=== PATIENT | female | born 1990 | race Caucasian/White ===

== ENCOUNTER 2020-12-26 15:00 | Outpatient (RCR) | payer OTHER, SELFPAY ==
[2020-10-22 12:38] VITALS: BMI 56.9
[2020-10-22 12:47] VITALS: BMI 56.9
== END 2021-01-07 08:09 | disposition home or self-care (01) ==
LOC: ANHDMC 15:00
PROVIDERS: PCP Family Medicine
DX: E66.01 Morbid (severe) obesity due to excess calories (principal); Z71.3 Dietary counseling and surveillance
CPT/HCPCS: 97802

== ENCOUNTER 2021-02-02 16:50 | Emergency (ER) | payer OTHER, SELFPAY ==
--- NOTE | ~2021-02-02 | XR_ITS ---
XR chest 1V portable 02/02/2021 18:54 Indication: Cough and congestion. Chills. Procedure: AP portable chest Comparison: 04/24/2019 Findings: Ill-defined patchy infiltrates of the mid and lower lung zones. Heart size normal. No pleur al effusion or pneumothorax. Impression: 1: Patchy bilateral infiltrates of the mid and lower lung zones, suspicious for pneumonia. Reviewed, dictated and finalized at location A. Impression: 1: Patchy bilateral infiltrates of the mid and lower lung zones, suspicious for pneumonia.
[2021-02-02 17:01] VITALS: BP 176/86; PULSE 108; RESP 18; TEMP 36.6; O2SAT 97
--- NOTE | 2021-02-02 18:42 | ED.URI ---
HPI - URI/Sore Throat General Chief Complaint: Upper Respiratory Infection Stated Complaint: cold s/s Time Seen by Provider: 02/02/21 18:41 Source: patient Mode of arrival: ambulatory Limitations: no limitations History of Present Illness HPI Narrative: Patient is a 30-year-old female complaining of cough, productive, white-yellowish sputum, nasal congestion, body aches, headache, chills, hot and cold flashes, that started 2 days ago. Patient denies any neck pain or stiffness, chest pain, shortness of breath abdominal pain, nausea, vomiting, diarrhea or rash. Related Data Allergies Allergy/AdvReac Type Severity Reaction Status Date / Time No Known Allergies Allergy Unverified 05/03/19 00:48 Review of Systems Review of Systems: All systems reviewed & are unremarkable except as noted in HPI and below PMFSH Social History Social History Smoking status: Never smoker Gender identity (if verbalized by the patient): Female Spiritual care concerns: No Comments Past medical history: None Family history: Noncontributory Social history: Non-smoker no EtOH or drug use Exam Const: General: cooperative, healthy appearing, comfortable, no acute distress, well developed, alert and awake; No confusion Orientation/consciousness: oriented to person, oriented to place, oriented to time, patient oriented x3 and No confusion Limitations: no limitations HENMT: Head: normal to inspection, normocephalic and atraumatic Ears: hearing grossly normal bilaterally, TM normal on the right and TM normal on the left General nose exam: Normal external nose present, Normal nares present and No nasal discharge present Face and sinus: normal facial exam Mouth: Yes Normal oral and palatal mucosa present, Yes lip normal, Yes tongue normal and Yes oropharynx normal Throat: posterior oropharynx normal, tonsils normal and uvula midline Eyes: General: appearance normal, both eyes and all related structures Pupils: Equal, round and reactive pupils present EOM: EOMs intact bilaterally Neck: Neck: normal visual inspection, full ROM, no lymphadenopathy and no meningeal signs Chest: Chest palpation & inspection: normal inspection of the chest Resp: Effort & Inspection: normal respiratory effort, able to speak in complete sentences, no respiratory distress and not tachypneic Auscultation: clear to auscultation bilaterally, no crackles, no rales, no rhonchi and no wheezes Cardio: Rate: regular rate Rhythm: regular rhythm GI: Inspection: normal to inspection GI Palp: No abdominal tenderness, Yes Soft to palpation, No Tenderness to palpation present (GI), No Guarding due to palpation present (GI), No Rigid due to palpation and No Rebound tenderness present Auscultation: normal bowel sounds : General: Yes no CVA tenderness Back/Spine/Pelvis: Back: no CVA tenderness Skin: General skin exam: normal color, no rashes or lesions noted, elasticity normal and turgor normal Neuro: General: oriented to person, oriented to place, oriented to time, patient oriented x3, tone normal, moves all extremities, Normal light touch and pain sensation, no meningeal signs, no focal motor deficits, CN's II-XI intact bilaterally and No confusion Cranial nerves: Yes Equal, round and reactive pupils present Speech: No Abnormal speech present Sensory Exam: No Sensory deficit (Neuro) Extrem: General: normal to inspection, full ROM and capillary refill normal Psych: Appearance: grossly normal and well kempt Mental Status: mental status grossly normal Speech and movement: Normal speech and movement present Affect: normal affect Attitude: cooperative Thought process: Normal thought process present Thought content: Yes Normal thought content present Insight: Good insight present (Psych) Judgement: Good judgement present (Psych) Course Vital Signs Vital signs: Vital Signs Temperature 36.6 C 02/02/21 17:01 Pulse Rate 108 H 02/02/21 17:01 Respiratory Rate 18 05/
[2021-02-02 18:46] VITALS: O2SAT 99
[2021-02-02 19:39] VITALS: BP 106/69; BP 163/109; PULSE 94; PULSE 96; RESP 18; O2SAT 97; O2SAT 98
[2021-02-02 19:43] LABS: Glucose Point of Care 96 mg/dl (65-105)
[2021-02-02 20:22] LABS: Add Urine Microscopic? YES; Appearance Urine Cloudy (Clear); Bacteria Urine Trace /hpf; Bilirubin Urine Negative (Negative); Blood Urine 3+ (Negative); Color Urine Yellow (Yellow); Glucose Urine UA Negative (Negative); Ketones Urine Negative (Negative); Leukocyte Esterase Ur 2+ LEU/UL (Negative); Nitrate Urine Negative (Negative); Protein Urine 1+ mg/dL (Negative); Specific Grav Ur 1.011 (1.001-1.035); Squamous Epithelial Cell Urine Many /hpf (Few); Urobilinogen Urine Negative mg/dL (<2.0); WBC Urine 16-20 /hpf
[2021-02-02] MEDS: DOXYCYCLINE HYCLATE 100 MG TABLET PO (20:52)
== END 2021-02-02 20:30 | disposition home or self-care (01) ==
PROVIDERS: Emergency Provider Emergency Medicine
DX: J06.9 Acute upper respiratory infection, unspecified (principal)
CPT/HCPCS: 71045; 81001; 81025; 82948; 87086; 87088; 87147; 99283; A9270

== ENCOUNTER 2022-02-02 00:42 | Emergency (ER) | payer OTHER, SELFPAY ==
--- NOTE | ~2022-02-02 | XR_ITS ---
XR chest 1V portable INDICATION: Chest tightness and sore throat TECHNIQUE: 2 view chest. FINDINGS: Comparison to multiple prior studies sequentially, with oldest reviewed study dated 2017. There is mild bilateral interstitial prominence and peribronchial cuffing. There is no focal consoli dation, pleural effusion, or pneumothorax. The cardiomediastinal silhouette is normal. IMPRESSION: 1. Findings most consistent with bronchiolitis versus an atypical or viral pneumonia. Reviewed, dictated and finalized at location A. IMPRESSION: 1. Findings most consistent with bronchiolitis versus an atypical or viral pne [facility].
[2022-02-02 00:42] VITALS: BP 157/109; PULSE 104; RESP 19; TEMP 37; O2SAT 98
--- NOTE | 2022-02-02 01:47 | ED.SOB ---
HPI - SOB/Dyspnea General Chief Complaint: Shortness of Breath/Dyspnea Stated Complaint: SICK Time Seen by Provider: 02/02/22 00:46 Source: patient and RN notes reviewed Mode of arrival: ambulatory Limitations: no limitations History of Present Illness MD elicited complaint: shortness of breath and cough (and sore throat) Onset (ago): day(s) (3) Timing: constant Severity: mild Exacerbating factors: coughing Relieving factors: bronchodilators and medication Known history of: asthma Associated symptoms: cough and chest congestion Treatment prior to arrival: bronchodilator Related Data Home Medications Medication Instructions Recorded Confirmed albuterol sulfate 90 mcg/actuation See Rx Instructions .Route 02/02/22 02/02/22 aerosol inhaler .COMPLEX PRN Shortness Of Breath blood sugar diagnostic (OneTouch 02/02/22 02/02/22 Verio test strips) fluoxetine 20 mg capsule 20 cap PO DAILY 02/02/22 02/02/22 fluoxetine 40 mg capsule 40 cap PO DAILY 02/02/22 02/02/22 fluticasone propionate 110 See Rx Instructions .Route .COMPLEX 02/02/22 02/02/22 mcg/actuation HFA aerosol inhaler (Flovent HFA) lamotrigine 25 mg tablet 2 tablet PO DAILY 02/02/22 02/02/22 lisinopril 10 mg tablet 1 tablet PO DAILY 02/02/22 02/02/22 prazosin 1 mg capsule 1 cap PO HS 02/02/22 02/02/22 rosuvastatin 10 mg tablet 1 tablet PO DAILY 02/02/22 02/02/22 sitagliptin 25 mg tablet (Januvia) 1 tablet PO DAILY 02/02/22 02/02/22 Allergies Allergy/AdvReac Type Severity Reaction Status Date / Time No Known Allergies Allergy Verified 02/02/22 00:52 Review of Systems Review of Systems: All systems reviewed & are unremarkable except as noted in HPI and below PMFSH Past Medical History Medical History (Updated 02/02/22 @ 02:24 by Hamilton Chi MD) Bronchitis Pharyngitis Viral syndrome Social History Social History Smoking status: Never smoker Gender identity (if verbalized by the patient): Female Spiritual care concerns: No Exam Const: General: no acute distress Nutritional Appearance: obese Orientation/consciousness: patient oriented x3 Limitations: no limitations HENMT: Ears: external ears normal, TM's normal bilaterally and EAC's normal General nose exam: Normal external nose present and Normal nares present Face and sinus: normal facial exam and sinuses nontender Mouth: Yes Normal oral and palatal mucosa present and Yes moist mucous membranes Teeth and gingiva: dentition normal Other: hyperemic pharynx, Eyes: Conjunctivae: conjunctivae normal Pupils: Equal, round and reactive pupils present EOM: EOMs intact bilaterally Neck: Neck: normal visual inspection and no lymphadenopathy Chest: Chest palpation & inspection: normal inspection of the chest Resp: Effort & Inspection: normal respiratory effort Auscultation: rhonchi (mild occasional) Cardio: Rate: regular rate Rhythm: regular rhythm GI: GI Palp: Yes Soft to palpation and No Tenderness to palpation present (GI) Auscultation: normal bowel sounds : General: Yes bladder normal to palpation and Yes no CVA tenderness Skin: General skin exam: normal color Rashes: no rashes Wounds: no wounds Neuro: General: patient oriented x3, moves all extremities, no meningeal signs, no focal motor deficits and CN's II-XI intact bilaterally Extrem: General: normal to inspection and no pedal edema Psych: Mental Status: mental status grossly normal Affect: normal affect Attitude: cooperative Course Course Emergency Course: Pt was stable in the ED, no acute SOB. Reevaluation(s) Reevaluation #1: VS to be treated. Date: 02/02/22 Time: 01:05 Vital Signs Vital signs: Vital Signs Temperature 37.0 C 02/02/22 00:42 Pulse Rate 104 H 02/02/22 00:42 Respiratory Rate 19 02/02/22 00:42 Blood Pressure 157/109 H 02/02/22 00:42 Pulse Oximetry 98 02/02/22 00:42 Oxygen Delivery Room Air 02/02/22 00:42 Temperature 37.0 C 02/02/22 00:42 Pulse Rat
[2022-02-02 01:56] VITALS: BP 146/103; PULSE 98; RESP 17; O2SAT 98
--- NOTE | 2022-02-02 02:12 | PC.NURSE ---
pt informed cath laboratory technician that she is refusing the ABG lab draw. Md Chi informed.
[2022-02-02 02:18] LABS: Basophils Absolute Auto 0.05 K/mm3 (0.00-0.10); Basophils Percent Auto 0.5 % (0.0-1.0); Eosinophils Absolute Auto 0.17 K/mm3 (0.02-0.50); Eosinophils Percent Auto 1.6 % (1.0-6.0); Hematocrit 43.5 % (35.0-49.0); Hemoglobin 13.6 g/dL (12.0-15.0); Immature Granulocyte Absolute 0.03 K/mm3 (0.00-0.00); Immature Granulocyte Percent A 0.3 % (0.0-0.0); Lymphocytes Absolute Auto 3.54 K/mm3 (1.10-4.50); Lymphocytes Percent Auto 33.5 % (18.0-42.0); Mean Corpuscular HGB Conc 31.3 g/dL (32.0-36.0); Mean Corpuscular Hemoglobin 24.8 pg (27.0-31.0); Mean Corpuscular Volume 79.2 fL (78.0-102.0); Mean Platelet Volume 10.2 fl (9.2-11.8); Monocytes Absolute Auto 0.56 K/mm3 (0.10-0.90); Monocytes Percent Auto 5.3 % (2.0-11.0); Neutrophils Absolute Auto 6.2 K/mm3 (1.7-7.2); Neutrophils Percent Auto 58.8 % (50.0-70.0); Platelet Count Result 261 K/mm3 (150-420); Red Blood Count 5.49 M/mm3 (4.20-5.40); White Blood Count 10.6 K/mm3 (4.8-10.8)
[2022-02-02 02:32] LABS: Influenza Control Valid (Valid)
[2022-02-02] MEDS: cloNIDine HCL 0.2 MG TABLET PO (02:34)
[2022-02-02 03:08] VITALS: BP 134/92; PULSE 97
[2022-02-02 03:09] VITALS: BP 134/92; PULSE 97; RESP 17; TEMP 36.3; O2SAT 98
== END 2022-02-02 03:10 | disposition home or self-care (01) ==
PROVIDERS: Emergency Provider Emergency Medicine
DX: J40 Bronchitis, not specified as acute or chronic (principal); J06.9 Acute upper respiratory infection, unspecified; B34.9 Viral infection, unspecified
CPT/HCPCS: 71045; 85025; 87081; 87804; 87880; 99283; A9270

== ENCOUNTER 2023-01-06 15:28 | Observation (INO) | payer OTHER, SELFPAY ==
[2023-01-06] VITALS (10 sets, daily range): BP systolic 119–145; BP diastolic 71–79; PULSE 69–82; RESP 13–20; TEMP 36.6; O2SAT 98–100; BMI 47.2
--- NOTE | ~2023-01-06 | CT_ITS ---
EXAMINATION: CTA neck DATE: 01/07/2023 09:09 INDICATION: Neck pain. TECHNIQUE: Computed tomographic angiography (CTA) of the neck was performed with 100 mL Omnipaque-350 intravenous contrast. Automated exposure control and iterative reconstruction technique were employe d. The dose-length product was 652.55 mGy-cm. Maximum intensity projection 3D-reconstructions were cr eated by the technologist on a separate workstation. COMPARISON: None. FINDINGS: There are no pathologically enlarged lymph nodes. There is no significant stenosis of the v ertebral arteries. There is no visible plaque in the proximal internal carotid arteries. There is 0% stenosis of the proximal right internal carotid artery relative to normal distal artery lumen diamete r (NASCET criteria). There is 0% stenosis of the proximal left internal carotid artery relative to no rmal distal artery lumen diameter. There is mild cervical spondylosis. IMPRESSION: 1. 0% stenosis of the proximal internal carotid arteries relative to normal distal artery lumen diame ters (NASCET criteria). Reviewed, dictated and finalized at location A. IMPRESSION: 1. 0% stenosis of the proximal internal carotid arteries relative to normal dis tony artery lumen diameters (NASCET criteria).
--- NOTE | ~2023-01-06 | CT_ITS ---
EXAMINATION: CT brain wo con DATE: 01/06/2023 16:31 INDICATION: blurry vision . TECHNIQUE: Computed tomography (CT) of the head was performed without intravenous contrast. The mA wa s adjusted according to patient size. Iterative reconstruction technique was employed. The dose-lengt h product was 605.33 mGy-cm. COMPARISON: None. FINDINGS: No acute intracranial hemorrhage or extra-axial fluid collection. No hydrocephalus, mass, or herniation. No acute ischemic infarct. Unremarkable dural venous sinus attenuation. No acute osseous abnormality. The aerated spaces are clear. IMPRESSION: No acute intracranial process. Reviewed, dictated and finalized at location K.
--- NOTE | ~2023-01-06 | MR_ITS ---
EXAMINATION: MR brain/brain stem wo/w con DATE: 01/07/2023 08:51 INDICATION: Intracranial hypertension. Blurred vision. TECHNIQUE: Magnetic resonance imaging (MRI) of the brain and brainstem was performed without and with 20 mL MultiHance intravenous contrast. COMPARISON: Head CT 01/06/2023 FINDINGS: There is no intracranial hemorrhage, acute infarction, or abnormal intracranial mass lesion . The ventricles are normal in size. The paranasal sinuses are clear. The orbits are normal. The mast oid air cells are normal. IMPRESSION: 1. Normal brain. Reviewed, dictated and finalized at location A. IMPRESSION: 1. Normal brain.
[2023-01-06] MEDS: FAMOTIDINE 20 MG TABLET PO (16:49)
[2023-01-06] MEDS: ONDANSETRON HCL ODT 4 MG TABLET PO (16:49)
--- NOTE | 2023-01-06 18:11 | ED.GENADULT ---
HPI - General Adult General Chief complaint: Unspecified Stated complaint: tongue numbness Time Seen by Provider: 01/06/23 15:58 History of Present Illness HPI narrative: Patient states that since last night, she has noticed some numbness to the tip of her tongue, and blurry vision to bilateral eyes that comes and goes. She also describes heartburn. She has been diagnosed in the past with idiopathic intracranial hypertension, and have been told that had resolved. She is concerned that this may be happening again. Endorses a very mild headache. Related Data Home Medications Medication Instructions Recorded Confirmed albuterol sulfate 90 mcg/actuation See Rx Instructions .Route 02/02/22 02/02/22 aerosol inhaler .COMPLEX PRN Shortness Of Breath blood sugar diagnostic (OneTouch 02/02/22 02/02/22 Verio test strips) fluoxetine 20 mg capsule 20 cap PO DAILY 02/02/22 02/02/22 fluoxetine 40 mg capsule 40 cap PO DAILY 02/02/22 02/02/22 fluticasone propionate 110 See Rx Instructions .Route .COMPLEX 02/02/22 02/02/22 mcg/actuation HFA aerosol inhaler (Flovent HFA) lamotrigine 25 mg tablet 2 tablet PO DAILY 02/02/22 02/02/22 lisinopril 10 mg tablet 1 tablet PO DAILY 02/02/22 02/02/22 prazosin 1 mg capsule 1 cap PO HS 02/02/22 02/02/22 rosuvastatin 10 mg tablet 1 tablet PO DAILY 02/02/22 02/02/22 sitagliptin phosphate 25 mg tablet 1 tablet PO DAILY 02/02/22 02/02/22 (Januvia) Allergies Allergy/AdvReac Type Severity Reaction Status Date / Time No Known Allergies Allergy Verified 01/06/23 15:39 Review of Systems Review of Systems: CONST: No fever. HEENT: Blurry vision comes/goes C/V: No chest pain RESP: No cough GI: Mild epigastric discomfort and nausea : No dysuria. M/S: No joint pain. SKIN: No rash. NEURO: Tingling to tongue PSYCH: Anxiety PMFSH Past Medical History Medical History Bronchitis Pharyngitis Viral syndrome Social History Social History Smoking status: Never smoker Gender identity (if verbalized by the patient): Female Spiritual care concerns: No Exam Narrative: EXAMINATION OF ORGAN SYSTEMS/BODY AREAS: Constitutional: Vital signs per nursing GENERAL:[No acute distress, non-toxic appearing.] HEAD: Normal with no signs of head trauma. EYES: EOMI, conjunctiva normal, PERRL ENT: Hearing grossly intact LUNGS: Nonlabored breathing. HEART: [Regular rate and rhythm] ABD: [Soft], [nontender to palpation] EXT: Normal range of motion SKIN: [No rashes or lesions.] NEURO: [Alert and oriented x 3. No gross focal sensory or strength deficits.] NIHSS 0 PSYCH: Normal affect Course Vital Signs Vital signs: Vital Signs Temperature 97.8 F 01/06/23 15:30 Pulse Rate 79 01/06/23 15:30 Respiratory Rate 19 01/06/23 15:30 Blood Pressure 131/79 01/06/23 15:30 Pulse Oximetry 100 01/06/23 15:30 Oxygen Delivery Room Air 01/06/23 15:30 Temperature 97.8 F 01/06/23 15:30 Pulse Rate 82 01/06/23 17:01 Respiratory Rate 13 01/06/23 16:51 Blood Pressure 119/71 01/06/23 16:16 Pulse Oximetry 99 01/06/23 17:01 Oxygen Delivery Room Air 01/06/23 15:30 Medical Decision Making [facility] Narrative Medical decision making narrative: 32-year-old female presenting with multiple vague complaints including tingling of her tongue and intermittent blurry vision, and heartburn. Vital signs stable, NIH stroke scale is 0, she is well-appearing here, I did discuss this with her neurologist given her prior history of IIH and he recommended CT head now and admission for MRI and possible further work-up including lumbar puncture. Patient agreeable with this plan, case discussed with hospitalist for admission. Vital Signs Vital Signs: Vital Signs Temperature 97.8 F 01/06/23 15:30 Pulse Rate 79 01/06/23 15:30 Respiratory Rate 19 01/06/23 15:30 Blood Pre
[2023-01-06 21:33] LABS: Glucose Point of Care 106 mg/dl (65-105)
--- NOTE | 2023-01-06 21:41 | PM.IMHP ---
H&P: HPI History of Present Illness Date/Time: 01/06/23 21:41 Chief Complaint: Tongue numbness Narrative: The patient has a history of asthma, depression with personality disorder, hypertension, obesity, diabetes and hyperlipidemia. The patient stated since last night she does notice some numbness to the tip of her tongue. She also had complaints of blurred vision on and off and mild vision. She stated this comes and goes. She also has some complaints of heartburn. The patient had been diagnosed in the past with idiopathic intracranial hypertension and had a spinal tap in the past and this has been resolved. Patient was concerned that this may be happening again. Patient also complains of a mild headache. He stated that he either Toradol or dilaudid would help her with her discomfort. She was given Toradol. The patient is 132.9 kg and lumbar puncture was deferred ED provider. The patient was given Zofran, Pepcid and the Toradol.. Her NIH score was 0. The case was discussed with the neurologist given her prior history iih it was recommended that the patient stay overnight and receive an MRI and a possible lumbar puncture tomorrow. Her blood sugar was noted to be 106. Head CT was read as no acute intracranial process. The patient is being admitted to observation status on the date of service of 01/06/2023. Review of Systems Review of Systems: All systems reviewed & are unremarkable except as noted in HPI and below Constitutional: Constitutional: Reports as per HPI and Reports no additional constitutional complaints Eyes: Eyes: Reports as per HPI and Reports no additional eye complaints ENT: Reports system reviewed and no additional complaints, except as documented and Reports Normal hearing present Cardiovascular: Cardiovascular: Reports no additional cardiovascular complaints Respiratory: Respiratory: Reports no additional respiratory complaints and Reports no additional respiratory complaints Gastrointestinal: Gastrointestinal: Reports as per HPI and Reports no additional gastrointestinal complaints Musculoskeletal: Musculoskeletal: Reports no additional musculoskeletal complaints Integumentary/Breasts: Skin/Breast: Reports system reviewed and no additional complaints, except as docu and Reports as per HPI Neurologic: Reports system reviewed and no additional complaints, except as documented, Reports as per HPI and Reports Normal hearing present Psychiatric: Psychiatric: Reports no additional psychiatric complaints and Reports as per HPI Endocrine: Endocrine: Reports no additional endocrine complaints Hematologic/Lymphatic: Hematologic/Lymphatic: Reports no additional hematologic/lymphatic complaints Allergic/Immunologic: Allergic/Immunologic: Reports no additional allergic/immunologic complaints PMFSH Past Medical History Medical History (Updated 01/07/23 @ 01:23 by Mary Ann Katz NP) Asthma Bipolar disorder Borderline personality disorder Bronchitis Diabetes Hyperlipidemia Hypertension Pharyngitis PTSD (post-traumatic stress disorder) Viral syndrome Surgical History Surgical History (Updated 01/07/23 @ 01:23 by Mary Ann Katz NP) H/O section X1 Family History Family History Mother Seizure Social History Social History (Updated 01/07/23 @ 01:24 by Mary Ann Katz NP) Social History: She lives with her fiance, daughter and her fiancee's parents. She works for place called [employer]. She just recently started there. She is a lifelong nonsmoker. She denies any alcohol marijuana or illicit drugs. Code status full code Smoking status: Never smoker Alcohol intake: never Substance use: current Substance use type: marijuana Other substance usage details: 3x per year for anxiety Lack of Transportation: No Lack of Food: Never True Current Housing: I Have Housing Concerned About Future Housing: No Difficul
[2023-01-06] MEDS: KETOROLAC 30 MG/ML VIAL (*BKC) IV PUSH (22:09)
--- NOTE | 2023-01-07 | ECHO_ITS ---
Patient Info Name: Jil Kidd Age: 32 years : 1990 Gender: Female Ht: 66 in Wt: 292 lbs BSA: 2.56 m2 HR: 74 bpm BP: 108 / 62 mmHg Heart Rhythm: Sinus Rhythm Technical Quality: Poor Exam Date: 01/07/2023 11:41 AM Exam Location: [facility] Patient Status: Outpatient Admit Date: 01/06/2023 Staff Ordering Physician: Mary Ann Katz NP Boarding Specialist: Radha Dorado RDCS Attending Provider: Carmen Green MD Referring Physician: Sterling POLK; Exam Type: CA echo dop bubble study w con Study Info Indications - NEURO S/S Contrast/Agitated Saline Contrast/Ag. Saline: Agitated Saline Amount: 30.00 ml Administered By: Madeleine Mckeon RDCS Existing IV Access: Yes Contrast/Ag. Saline: Definity Amount: 3.00 ml Administered By: Madeleine Mckeon RDCS Existing IV Access: Yes Reason for Poor Study: patient body habitus Summary 1. Left ventricular chamber dimension is normal. 2. Left ventricular systolic function is hyperdynamic, estimated at >70%. 3. The left ventricular diastolic function is grade I diastolic dysfunction. 4. Right ventricular systolic function is normal. 5. Left atrial chamber dimension is moderately enlarged. 6. Right atrial chamber dimension is mildly enlarged. 7. Intact interatrial septum visualized by agitated saline imaging. Negative bubble study. 8. There is trivial pericardial effusion. Left Ventricle Left ventricular chamber dimension is normal. Left ventricular systolic function is hyperdynamic, estimated at >70%. There is no increased left ventricular wall thickness. The left ventricular diastolic function is grade I diastolic dysfunction. Right Ventricle Right ventricular chamber dimension is normal. Right ventricular systolic function is normal. Left Atria Left atrial chamber dimension is moderately enlarged. Right Atria Right atrial chamber dimension is mildly enlarged. Atrial Septum Intact interatrial septum visualized by agitated saline imaging. Negative bubble study. Aortic Valve The aortic valve is not well visualized. There is no aortic valve stenosis. There is no aortic valve regurgitation. Pulmonic Valve The pulmonic valve is not well visualized. Mitral Valve There is trace mitral valve regurgitation. Tricuspid Valve There is trace tricuspid valve regurgitation. Pericardium/Pleural There is trivial pericardial effusion. Inferior Vena Cava Inferior vena cava is not well visualized. Aorta The aortic root size at the sinus of Valsalva is normal. Left Ventricular Outflow Tract Name Value Normal LVOT 2D LVOT Diameter 1.9 cm LVOT Doppler LVOT Peak Gradient 8 mmHg LVOT Mean Gradient 5 mmHg LVOT VTI 27 cm LVOT VTI/AV VTI Ratio 1.0 LVOT Stroke Volume 80 ml LVOT CO 6.2 l/min LVOT CI 2.4 l/min/m2 Pulmonic Valve Name
--- NOTE | 2023-01-07 00:22 | PCRCNOTE ---
Pt declining use of hospital cpap/bipap at this time
[2023-01-07 04:44] VITALS: BP 108/62; PULSE 65; RESP 17; TEMP 36.7; O2SAT 99
[2023-01-07] MEDS: PRAZOSIN HCL 1 MG CAPSULE 2 MG PO (05:43)
[2023-01-07 05:56] LABS: Basophils Percent Auto 0.4 % (0.2-1.2); Eosinophils Absolute Auto 0.1 K/mm3 (0-0.3); Eosinophils Percent Auto 1.3 % (0-4.4); Hematocrit 42.6 % (37.0-47.0); Immature Granulocyte Absolute 0.02 K/mm3 (0.00-0.031); Immature Granulocyte Percent A 0.3 % (0-0.5); Lymphocytes Absolute Auto 2.57 K/mm3 (0.9-3.2); Lymphocytes Percent Auto 36.1 % (18.3-44.2); Mean Corpuscular HGB Conc 30.5 g/dl (32-36); Mean Corpuscular Hemoglobin 25.4 pg (26-34); Mean Corpuscular Volume 83.2 fl (80-100); Mean Platelet Volume 10.3 fl (7.4-10.4); Monocytes Absolute Auto 0.4 K/mm3 (0.1-0.6); Monocytes Percent Auto 5.1 % (2.6-8.5); Neutrophils Absolute Auto 4.1 K/mm3 (1.3-6.7); Neutrophils Percent Auto 56.8 % (45.5-73.1); Platelet Count Result 262 k/mm3 (150-375); Red Blood Count 5.12 M/mm3 (4.2-5.4); Red Cell Distribution Width 14.2 % (11.5-14.5); White Blood Count 7.1 K/mm3 (4.5-10.0)
[2023-01-07 06:10] LABS: Alanine Aminotransferase 21 U/L (6-35); Albumin Level 3.9 g/dL (3.5-5.1); Alkaline Phosphatase 81 U/L (38-126); Anion Gap 4 mmol/L (8-16); Aspartate Amino Transferase 18 U/L (14-36); Bilirubin,Total 1.1 mg/dL (0.2-1.3); Blood Urea Nitrogen 8 mg/dL (7-17); Calcium 9.1 mg/dL (8.4-10.2); Carbon Dioxide 31 mmol/L (22-30); Chloride 102 mmol/L (98-107); Estimated CRCL calculation 163 ml/min; Estimated Glomerular Filt Rate > 60; Glucose 101 mg/dL (65-110); Potassium 3.7 mmol/L (3.4-5.0); Sodium 137 mmol/L (137-145)
[2023-01-07 07:17] LABS: Hemoglobin A1C 6.7 % (<5.7)
--- NOTE | 2023-01-07 07:35 | P.PNIM_ITS ---
Progress Note: A&P Assessment and Plan (1) Blurred vision: Code(s): H53.8 - Other visual disturbances Status: Acute Assessment and Plan: * Vision changes noted to be pixalated and fades in an out intermittently * no focal weakness * NIH score 0 * Neurology has been consulted * MRI negative for any acute stroke * Echo bubble * CTA carotid 0% stenosis bilateral carotid arteries * Could also be related to diabetes * Could be related to migraine * Neurology recommending a spinal tap to rule out pseudotumor (2) Diabetes: Qualifiers: Diabetes mellitus complication status: without complication Diabetes mellitus mcfp insulin use: without mcfp use Diabetes mellitus type: type 2 Qualified Code(s): E11.9 - Type 2 diabetes mellitus without complications Code(s): E11.9 - Type 2 diabetes mellitus without complications Status: Acute Assessment and Plan: * Glucose 101 * Accu-Cheks AC and HS * sliding scale insulin * hypoglycemic protocol * A1c 6.7 * Trend glucose and adjust therapy as indicated (3) Asthma: Qualifiers: Asthma complication type: uncomplicated Asthma persistence: intermittent Asthma severity: unspecified severity Qualified Code(s): J45.20 - Mild intermittent asthma, uncomplicated Code(s): J45.909 - Unspecified asthma, uncomplicated Status: Acute Assessment and Plan: * Continue with inhaler albuterol prn * Not in acute exacerbation * Continue to trend respiratory status * Adjust medications as indicated (4) Hypertension: Qualifiers: Hypertension type: primary hypertension Qualified Code(s): I10 - Essential (primary) hypertension Code(s): I10 - Essential (primary) hypertension Status: Acute Assessment and Plan: * Current BP 108/62 * Continue with lisinopril * Trend BP * Adjust therapy as indicated (5) Hyperlipidemia: Qualifiers: Hyperlipidemia type: mixed hyperlipidemia Qualified Code(s): E78.2 - Mixed hyperlipidemia Code(s): E78.5 - Hyperlipidemia, unspecified Status: Acute Assessment and Plan: * Continue with rosuvastatin (6) Borderline personality disorder: Code(s): F60.3 - Borderline personality disorder Status: Acute Assessment and Plan: * Continue with Lamictal and fluoxetine Prazosin * Controlled (7) Pseudotumor cerebri: Code(s): G93.2 - Benign intracranial hypertension Status: Acute Assessment and Plan: * Neurology recommending a spinal tap to rule out pseudotumor cerebri * Neurology consulted (8) Bipolar disorder: Code(s): F31.9 - Bipolar disorder, unspecified Status: Acute Assessment and Plan: * Stable on chronic * Continue home meds (9) Migraines: Code(s): G43.909 - Migraine, unspecified, not intractable, without status migrainosus Status: Acute Assessment and Plan: * Patient alludes to symptoms of migraine including frontal area pain radiating down below her eyes. * Vision is better however she is photophobic and stated the light bothers her * Ordered Reglan, Toradol, Benadryl, bag of fluids * Will reassess later this afternoon Time Spent With Patient Time: 51 minutes Time with patient: Greater than 35 minutes Subjective Date/time s
--- NOTE | 2023-01-07 07:35 | PM.IMPN ---
Progress Note: A&P Assessment and Plan (1) Blurred vision: Code(s): H53.8 - Other visual disturbances Status: Acute Assessment and Plan: Vision changes noted to be pixalated and fades in an out intermittently no focal weakness NIH score 0 Neurology has been consulted MRI negative for any acute stroke Echo bubble CTA carotid 0% stenosis bilateral carotid arteries Could also be related to diabetes Could be related to migraine Neurology recommending a spinal tap to rule out pseudotumor (2) Diabetes: Qualifiers: Diabetes mellitus complication status: without complication Diabetes mellitus buttermaker insulin use: without buttermaker use Diabetes mellitus type: type 2 Qualified Code(s): E11.9 - Type 2 diabetes mellitus without complications Code(s): E11.9 - Type 2 diabetes mellitus without complications Status: Acute Assessment and Plan: Glucose 101 Accu-Cheks AC and HS sliding scale insulin hypoglycemic protocol A1c 6.7 Trend glucose and adjust therapy as indicated (3) Asthma: Qualifiers: Asthma complication type: uncomplicated Asthma persistence: intermittent Asthma severity: unspecified severity Qualified Code(s): J45.20 - Mild intermittent asthma, uncomplicated Code(s): J45.909 - Unspecified asthma, uncomplicated Status: Acute Assessment and Plan: Continue with inhaler albuterol prn Not in acute exacerbation Continue to trend respiratory status Adjust medications as indicated (4) Hypertension: Qualifiers: Hypertension type: primary hypertension Qualified Code(s): I10 - Essential (primary) hypertension Code(s): I10 - Essential (primary) hypertension Status: Acute Assessment and Plan: Current BP 108/62 Continue with lisinopril Trend BP Adjust therapy as indicated (5) Hyperlipidemia: Qualifiers: Hyperlipidemia type: mixed hyperlipidemia Qualified Code(s): E78.2 - Mixed hyperlipidemia Code(s): E78.5 - Hyperlipidemia, unspecified Status: Acute Assessment and Plan: Continue with rosuvastatin (6) Borderline personality disorder: Code(s): F60.3 - Borderline personality disorder Status: Acute Assessment and Plan: Continue with Lamictal and fluoxetine Prazosin Controlled (7) Pseudotumor cerebri: Code(s): G93.2 - Benign intracranial hypertension Status: Acute Assessment and Plan: Neurology recommending a spinal tap to rule out pseudotumor cerebri Neurology consulted (8) Bipolar disorder: Code(s): F31.9 - Bipolar disorder, unspecified Status: Acute Assessment and Plan: Stable on chronic Continue home meds (9) Migraines: Code(s): G43.909 - Migraine, unspecified, not intractable, without status migrainosus Status: Acute Assessment and Plan: Patient alludes to symptoms of migraine including frontal area pain radiating down below her eyes. Vision is better however she is photophobic and stated the light bothers her Ordered Reglan, Toradol, Benadryl, bag of fluids Will reassess later this afternoon Time Spent With Patient Time: 51 minutes Time with patient: Greater than 35 minutes Subjective Date/time seen: 01/07/231114 Interval history: 01/07/231114 Patient stated that she is doing okay right now. Patient stated that she is having some headache. She states her headache is frontal lobe and is a 4/10. She also stated that she feels like her IS spasming and she is very photophobic. Vision is better the blurry and now is is less. She denies any chest pain, shortness a breath, nausea, vomiting, diarrhea constipation. She did state that she has decreased appetite but did eat this morning. 01/06/23? 21:41 The patient has a history of asthma, depression with personality diso
[2023-01-07 08:30] VITALS: BP 142/80; PULSE 83
[2023-01-07 09:13] LABS: Glucose Point of Care 147 mg/dl (65-105)
[2023-01-07] MEDS: ROSUVASTATIN 10 MG TABLET 20 MG PO (09:19)
[2023-01-07 09:20] VITALS: BP 142/80; PULSE 83
[2023-01-07] MEDS: FLUoxetine HCL 20 MG CAPSULE 80 MG PO (09:21)
[2023-01-07] MEDS: lisinopriL 20 MG TABLET PO (09:22)
[2023-01-07] MEDS: lamoTRIgine 50 MG TABLET PO (09:22)
--- NOTE | 2023-01-07 10:59 | PC.NURSE ---
On 01/07/23, the student, [Cynthia Silva], provided care and completed [facility] documentation on this patient. I have reviewed the student's documentation and agree with the findings.
--- NOTE | 2023-01-07 11:15 | P.DS_ITS ---
DS: Admitting Diagnosis Discharge Date 01/07/23 1115 Admitting Diagnosis Migraine DS: Discharge Diagnosis Discharge Diagnosis (1) Blurred vision: Code(s): H53.8 - Other visual disturbances Status: Acute Assessment and Plan: * Vision changes noted to be pixalated and fades in an out intermittently * no focal weakness * NIH score 0 * Neurology has been consulted * MRI negative for any acute stroke * Echo bubble negative for any PFO * CTA carotid 0% stenosis bilateral carotid arteries * Could also be related to diabetes * Could be related to migraine * Neurology recommending a spinal tap to rule out pseudotumor * Spoke with Dr. Awad, who stated that if she is feeling better, she should be able to be discharged (2) Diabetes: Qualifiers: Diabetes mellitus complication status: without complication Diabetes mellitus long term care phlebotomist insulin use: without long term care phlebotomist use Diabetes mellitus type: type 2 Qualified Code(s): E11.9 - Type 2 diabetes mellitus without complications Code(s): E11.9 - Type 2 diabetes mellitus without complications Status: Acute Assessment and Plan: * Glucose 101 * Accu-Cheks AC and HS * sliding scale insulin * hypoglycemic protocol * A1c 6.7 * Trend glucose and adjust therapy as indicated (3) Asthma: Qualifiers: Asthma complication type: uncomplicated Asthma persistence: intermittent Asthma severity: unspecified severity Qualified Code(s): J45.20 - Mild intermittent asthma, uncomplicated Code(s): J45.909 - Unspecified asthma, uncomplicated Status: Acute Assessment and Plan: * Continue with inhaler albuterol prn * Not in acute exacerbation * Continue to trend respiratory status * Adjust medications as indicated (4) Hypertension: Qualifiers: Hypertension type: primary hypertension Qualified Code(s): I10 - Essential (primary) hypertension Code(s): I10 - Essential (primary) hypertension Status: Acute Assessment and Plan: * Current BP 108/62 * Continue with lisinopril * Trend BP * Adjust therapy as indicated (5) Hyperlipidemia: Qualifiers: Hyperlipidemia type: mixed hyperlipidemia Qualified Code(s): E78.2 - Mixed hyperlipidemia Code(s): E78.5 - Hyperlipidemia, unspecified Status: Acute Assessment and Plan: * Continue with rosuvastatin (6) Borderline personality disorder: Code(s): F60.3 - Borderline personality disorder Status: Acute Assessment and Plan: * Continue with Lamictal and fluoxetine Prazosin * Controlled (7) Pseudotumor cerebri: Code(s): G93.2 - Benign intracranial hypertension Status: Acute Assessment and Plan: * Neurology recommending a spinal tap to rule out pseudotumor cerebri * Neurology consulted (8) Bipolar disorder: Code(s): F31.9 - Bipolar disorder, unspecified Status: Acute Assessment and Plan: * Stable on chronic * Continue home meds (9) Migraines: Code(s): G43.909 - Migraine, unspecified, not intractable, without status migrainosus Status: Acute Assessment and Plan: * Patient alludes to symptoms of migraine including frontal area pain radiating down below her eyes. * Vision is better however she is photophobic and stated the light b
--- NOTE | 2023-01-07 11:15 | PM.DS ---
DS: Admitting Diagnosis Discharge Date 01/07/23 1115 Admitting Diagnosis Migraine DS: Discharge Diagnosis Discharge Diagnosis (1) Blurred vision: Code(s): H53.8 - Other visual disturbances Status: Acute Assessment and Plan: Vision changes noted to be pixalated and fades in an out intermittently no focal weakness NIH score 0 Neurology has been consulted MRI negative for any acute stroke Echo bubble negative for any PFO CTA carotid 0% stenosis bilateral carotid arteries Could also be related to diabetes Could be related to migraine Neurology recommending a spinal tap to rule out pseudotumor Spoke with Dr. Awad, who stated that if she is feeling better, she should be able to be discharged (2) Diabetes: Qualifiers: Diabetes mellitus complication status: without complication Diabetes mellitus termite technician insulin use: without termite technician use Diabetes mellitus type: type 2 Qualified Code(s): E11.9 - Type 2 diabetes mellitus without complications Code(s): E11.9 - Type 2 diabetes mellitus without complications Status: Acute Assessment and Plan: Glucose 101 Accu-Cheks AC and HS sliding scale insulin hypoglycemic protocol A1c 6.7 Trend glucose and adjust therapy as indicated (3) Asthma: Qualifiers: Asthma complication type: uncomplicated Asthma persistence: intermittent Asthma severity: unspecified severity Qualified Code(s): J45.20 - Mild intermittent asthma, uncomplicated Code(s): J45.909 - Unspecified asthma, uncomplicated Status: Acute Assessment and Plan: Continue with inhaler albuterol prn Not in acute exacerbation Continue to trend respiratory status Adjust medications as indicated (4) Hypertension: Qualifiers: Hypertension type: primary hypertension Qualified Code(s): I10 - Essential (primary) hypertension Code(s): I10 - Essential (primary) hypertension Status: Acute Assessment and Plan: Current BP 108/62 Continue with lisinopril Trend BP Adjust therapy as indicated (5) Hyperlipidemia: Qualifiers: Hyperlipidemia type: mixed hyperlipidemia Qualified Code(s): E78.2 - Mixed hyperlipidemia Code(s): E78.5 - Hyperlipidemia, unspecified Status: Acute Assessment and Plan: Continue with rosuvastatin (6) Borderline personality disorder: Code(s): F60.3 - Borderline personality disorder Status: Acute Assessment and Plan: Continue with Lamictal and fluoxetine Prazosin Controlled (7) Pseudotumor cerebri: Code(s): G93.2 - Benign intracranial hypertension Status: Acute Assessment and Plan: Neurology recommending a spinal tap to rule out pseudotumor cerebri Neurology consulted (8) Bipolar disorder: Code(s): F31.9 - Bipolar disorder, unspecified Status: Acute Assessment and Plan: Stable on chronic Continue home meds (9) Migraines: Code(s): G43.909 - Migraine, unspecified, not intractable, without status migrainosus Status: Acute Assessment and Plan: Patient alludes to symptoms of migraine including frontal area pain radiating down below her eyes. Vision is better however she is photophobic and stated the light bothers her Ordered Reglan, Toradol, Benadryl, bag of fluids Will reassess later this afternoon Plan Seems to be more related to a migraine as the patient is photophobic, has frontal lobe pain, visual changes are lessened DS: Summary Hospital Course Hospital Course: Patient is a 32-year-old female with a past medical history of bipolar, asthma, hyperlipidemia who presented to the ED with complaints of vision changes and mild numbness of the tip of her tongue. Patient stated that her symptoms are come and go. Head CT was performed and did not show any acute abnormality. N
--- NOTE | 2023-01-07 12:04 | WPDNEURCNPN ---
Assessment and Plan Assessment and plan (1) Bipolar disorder: Code(s): F31.9 - Bipolar disorder, unspecified Status: Acute (2) Diabetes: Qualifiers: Diabetes mellitus type: type 2 Diabetes mellitus half-way insulin use: without half-way use Diabetes mellitus complication status: without complication Qualified Code(s): E11.9 - Type 2 diabetes mellitus without complications Code(s): E11.9 - Type 2 diabetes mellitus without complications Status: Acute (3) Pseudotumor cerebri: Code(s): G93.2 - Benign intracranial hypertension Status: Acute Plan Fairly normal neurological examination with complaints of blurred vision and visual disturbances but negative MRI of the brain she is diabetic as well echo bubble study is being carried out if everything comes back negative will do the spinal tap to rule out the possibility of recurrence of pseudotumor cerebri. Consult date: 01/07/23 HPI: Jil Kidd is a 32 year old female Admitted to the hospital through the emergency room where she presented with the complaints of numbness of the tongue in addition to the history of blurred vision with both eyes coming and going. She also gave the history of idiopathic intracranial hypertension in the past though the symptomatology has resolved , But she is concerned about returning Off the same problem. at the time of admission to the ER she was taking fluoxetine 60 mg daily lamotrigine 50 mg daily lisinopril 10 mg daily Amrita a statin 10 mg daily and Januvia 1 tablet daily. She is not allergic to any medication. She has no history of smoking. On initial eval her vital signs were normal and her physical examination was normal as well. Considering history of idiopathic intracranial hypertension in the past she was admitted for re- evaluation. Head and neck CTA normal,MRI normal P Review of Systems Review of Systems: All systems reviewed & are unremarkable except as noted in HPI and below PMFSH Past Medical History Medical History (Updated 01/07/23 @ 12:12 by Skyler Awad MD) Asthma Bipolar disorder Borderline personality disorder Bronchitis Diabetes Hyperlipidemia Hypertension Pharyngitis PTSD (post-traumatic stress disorder) Viral syndrome Surgical History Surgical History (Updated 01/07/23 @ 01:23 by Mary Ann Katz NP) H/O section X1 Family History Family History Mother Seizure Social History Social History (Updated 01/07/23 @ 01:24 by Mary Ann Katz NP) Social History: She lives with her fiance, daughter and her fiancee's parents. She works for place called [employer]. She just recently started there. She is a lifelong nonsmoker. She denies any alcohol marijuana or illicit drugs. Code status full code Smoking status: Never smoker Alcohol intake: never Substance use: current Substance use type: marijuana Other substance usage details: 3x per year for anxiety Lack of Transportation: No Lack of Food: Never True Current Housing: I Have Housing Concerned About Future Housing: No Difficulty Paying Gas/Electric Bills: No Difficulty Paying for Meds: No Currently Unemployed: No Education: High School Diploma/GED Difficulty w/ Childcare or Family Care: No Gender identity (if verbalized by the patient): Female Spiritual care concerns: No Meds Home Medications and Allergies Home Medications Medication Instructions Recorded Confirmed Type albuterol sulfate 90 mcg/actuation 2 puff inhalation Q6H PRN 02/02/22 01/06/23 History aerosol inhaler Shortness Of Breath fluoxetine 40 mg capsule 80 cap PO DAILY 02/02/22 01/06/23 History lamotrigine 25 mg tablet 2 tablet PO DAILY 02/02/22 01/06/23 History lisinopril 20 mg tablet 20 mg PO DAILY 01/06/23 01/06/23 History prazosin 2 mg capsule 2 mg PO HS 01/06/23 01/06/23 History rosuvastatin 20 mg tablet 20 mg PO DAILY
[2023-01-07] MEDS: PERFLUTREN LIPID MICROSPHERES 1.5 ML VIAL DILUTED TO 10 ML TOTAL VOLUME IV PUSH (12:20)
[2023-01-07] MEDS: KETOROLAC 30 MG/ML VIAL (*BKC) IV PUSH (12:23)
[2023-01-07] MEDS: diphenhydrAMINE HCl INJ 50 MG/ML VIAL IV PUSH (12:23)
[2023-01-07] MEDS: METOCLOPRAMIDE HCL INJ 10 MG/2 ML VIAL IV PUSH (12:26)
[2023-01-07] MEDS: SODIUM CHLORIDE 0.9% IV 1,000 ML 999 ML IV CONT (12:26)
[2023-01-07 14:00] VITALS: BP 140/78; PULSE 80; RESP 18; TEMP 36.6; O2SAT 98
== END 2023-01-07 17:23 | disposition home or self-care (01) ==
LOC: ANHED 17:44 → ANH2MED 21:53
PROVIDERS: Nurse Practitioner; Admitting Provider Family Medicine; Emergency Provider Emergency Medicine; Visit Provider Chiropractor
DX: H53.8 Other visual disturbances (principal); E11.9 Type 2 diabetes mellitus without complications; J45.909 Unspecified asthma, uncomplicated; I10 Essential (primary) hypertension; E78.5 Hyperlipidemia, unspecified; F60.3 Borderline personality disorder; G93.2 Benign intracranial hypertension; F31.9 Bipolar disorder, unspecified; R20.0 Anesthesia of skin; R56.9 Unspecified convulsions; E66.9 Obesity, unspecified; Z68.42 Body mass index [BMI] 45.0-49.9, adult; G43.909 Migraine, unspecified, not intractable, without status migrainosus; F12.90 Cannabis use, unspecified, uncomplicated; F43.10 Post-traumatic stress disorder, unspecified; Z79.51 Long term (current) use of inhaled steroids; Z79.84 Long term (current) use of oral hypoglycemic drugs; Z79.899 Other long term (current) drug therapy
CPT/HCPCS: 36415; 70450; 70498; 70553; 80053; 82948; 83036; 83735; 85025; 96374; 96375; 99285; A9270; A9577; C8929; G0378; G0379; J1200; J1885; J2765; J7030; Q9957; Q9967

== ENCOUNTER 2023-08-05 14:37 | Outpatient (RCR) | payer OTHER, SELFPAY | END 2023-11-01 09:58 | disposition home or self-care (01) | LOC: ANHDMC 14:37 | DX: O24.112 Pre-existing type 2 diabetes mellitus, in pregnancy, second trimester (principal); O99.213 Obesity complicating pregnancy, third trimester; Z3A.00 Weeks of gestation of pregnancy not specified; Z71.89 Other specified counseling | CPT/HCPCS: G0108 ==

== ENCOUNTER 2023-08-13 10:18 | Outpatient (CLI) | payer OTHER, SELFPAY ==
--- NOTE | ~2023-08-13 | MR_ITS ---
EXAMINATION: MR venography brain DATE: 08/13/2023 11:32 INDICATION: Pseudotumor cerebri. Empty sella syndrome. TECHNIQUE: Magnetic resonance venography (MRV) of the brain was performed without intravenous contras t. COMPARISON: Brain MRI 01/07/2023, neck CTA 01/07/2023 FINDINGS: The intracranial internal cerebral veins, vena cava, straight sinus, superior sagittal sinu s, transverse sinuses, oblique sinuses, and internal jugular veins are patent. The transverse sinuses are small, a normal variant, stable from 01/07/23. IMPRESSION: 1. Normal dural venous sinuses. Reviewed, dictated and finalized at location [facility]
== END 2023-08-13 10:19 | disposition home or self-care (01) ==
LOC: ANHIMG 10:20
PROVIDERS: Visit Provider Student in an Organized Health Care Education/Training Program
DX: G93.2 Benign intracranial hypertension (principal); R51.9 Headache, unspecified; H93.19 Tinnitus, unspecified ear
CPT/HCPCS: 70544

== ENCOUNTER 2023-08-25 13:25 | Observation (INO) | payer OTHER, SELFPAY ==
[2023-08-25] VITALS (9 sets, daily range): BP systolic 116–157; BP diastolic 48–84; PULSE 83–91; BMI 54.1
--- NOTE | 2023-08-25 14:26 | OBADM ---
This patient, Jil Roman Marti, admitted to the OB room 115 for observation. Patient/family oriented to hospital policies and general routines including ID bracelet, bed and alarms, visiting hours, pain management, procedures, bathroom and other care routines, personal items, smoking policy, room service/diet, and visiting hours. Patient/Family are encouraged to report perceived risks to care and to ask questions if they do not understand what they are told or what they should do.
[2023-08-25 16:27] LABS: Hematocrit 36.7 % (37.0-47.0); Hemoglobin 11.3 g/dL (12.0-15.0); Mean Corpuscular HGB Conc 30.8 g/dl (32-36); Mean Corpuscular Hemoglobin 24.7 pg (26-34); Mean Corpuscular Volume 80.3 fl (80-100); Mean Platelet Volume 10.8 fl (7.4-10.4); Platelet Count Result 191 k/mm3 (150-375); Red Blood Count 4.57 M/mm3 (4.2-5.4); Red Cell Distribution Width 14.3 % (11.5-14.5); White Blood Count 9.7 K/mm3 (4.5-10.0)
[2023-08-25 16:38] LABS: Alanine Aminotransferase 16 U/L (6-35); Albumin Level 3.3 g/dL (3.5-5.1); Alkaline Phosphatase 75 U/L (38-126); Anion Gap 5 mmol/L (8-16); Aspartate Amino Transferase 18 U/L (14-36); Bilirubin,Total 0.6 mg/dL (0.2-1.3); Blood Urea Nitrogen 5 mg/dL (7-17); Calcium 8.9 mg/dL (8.4-10.2); Carbon Dioxide 24 mmol/L (22-30); Chloride 105 mmol/L (98-107); Estimated Glomerular Filt Rate > 60; Glucose 128 mg/dL (65-110); Potassium 3.3 mmol/L (3.4-5.0); Sodium 134 mmol/L (137-145)
[2023-08-25 16:41] LABS: Beta-Hydroxybutyrate/Acetoacetate 0.18 mmol/L (0.02-0.27)
[2023-08-25 16:44] LABS: Appearance Urine Clear (Clear); Bacteria Urine None Seen /hpf; Bilirubin Urine Negative (Negative); Blood Urine Negative (Negative); Color Urine Yellow (Yellow); Glucose Urine UA Negative (Negative); Ketones Urine 1+ mg/dL (Negative); Leukocyte Esterase Ur 1+ LEU/UL (Negative); Nitrate Urine Negative (Negative); Non Pathogenic Casts 0-2; Protein Urine Negative (Negative); RBC Urine 0-2 /hpf (0-2); Specific Grav Ur 1.018 (1.001-1.035); Squamous Epithelial Cell Urine Occasional /hpf (Few)
[2023-08-25 16:47] LABS: Add Urine Microscopic? YES
[2023-08-25 17:03] LABS: Glucose Point of Care 146 mg/dl (65-105)
[2023-08-25 17:03] LABS: Glucose Point of Care 108 mg/dl (65-105)
--- NOTE | 2023-08-25 17:13 | PC.NURSE ---
Dr. Roa informed of lab results and 1 hr post lunch blood sugar of 146. Discussed BP's and pt's hx of CHTN. OK to discharge to home.
--- NOTE | 2023-08-31 14:44 | PM.OBTRLD ---
OB - Triage/Final Diagnosis Visit Information Comments/Additional reasons for admission: I have assessed the risk for this patient, Jil Roman Marti, and determined that she would benefit from observation care. Evaluation Laboratory results: Laboratory Tests 08/25/23 08/25/23 08/25/23 14:26 16:01 16:41 WBC 9.7 RBC 4.57 Hgb 11.3 L Hct 36.7 L MCV 80.3 MCH 24.7 L MCHC 30.8 L RDW 14.3 Plt Count 191 MPV 10.8 H Sodium 134 L Potassium 3.3 L Chloride 105 Carbon Dioxide 24 Anion Gap 5 L BUN 5 L Creatinine 0.40 L Estim Creat Clear Calc Not Reportable Estimated GFR > 60 Glucose 128 H POC Capillary Glucose 108 H 146 H Calcium 8.9 Total Bilirubin 0.6 AST 18 ALT 16 Alkaline Phosphatase 75 Total Protein 7.0 Albumin 3.3 L Beta-Hydroxybutyrate/Acetoacetate 0.18 Urine Color Yellow Urine Appearance Clear Urine pH 7.0 Ur Specific [place] 1.018 Urine Protein Negative Urine Glucose (UA) Negative Urine Ketones 1+ H Ur Blood (Man) Negative Urine Nitrate Negative Urine Bilirubin Negative Urine Urobilinogen 1.0 Leukocyte Esterase Rfl 1+ H Urine RBC 0-2 Urine WBC 6-10 H Ur Squamous Epith Cells Occasional Urine Bacteria None seen Urine Casts 0-2 Final Diagnosis (1) Urine ketones: Code(s): R82.4 - Acetonuria Status: Acute
== END 2023-08-25 17:49 | disposition home or self-care (01) ==
PROVIDERS: Admitting Provider Obstetrics & Gynecology; Visit Provider Obstetrics & Gynecology
DX: O99.282 Endocrine, nutritional and metabolic diseases complicating pregnancy, second trimester (principal); R82.4 Acetonuria; O24.912 Unspecified diabetes mellitus in pregnancy, second trimester; Z3A.22 22 weeks gestation of pregnancy
CPT/HCPCS: 36415; 80053; 81001; 82010; 82948; 85027; 87086; 87088; G0378; G0379

== ENCOUNTER 2023-12-14 13:30 | Outpatient (CLI) | payer OTHER, SELFPAY ==
[2023-12-14 14:05] LABS: Hemoglobin 11.6 g/dL (12.0-15.0); Mean Corpuscular HGB Conc 30.5 g/dl (32-36); Mean Corpuscular Hemoglobin 22.8 pg (26-34); Mean Corpuscular Volume 74.8 fl (80-100); Mean Platelet Volume 11.3 fl (7.4-10.4); Platelet Count Result 211 k/mm3 (150-375); Red Blood Count 5.08 M/mm3 (4.2-5.4); Red Cell Distribution Width 16.8 % (11.5-14.5); White Blood Count 8.7 K/mm3 (4.5-10.0)
[2023-12-14 15:00] LABS: HIV 1/2 Ab P24 Ag Result Negative (Negative)
[2023-12-15 14:40] LABS: Rapid Plasma Reagin Non-Reactive (NonReactive)
== END 2023-12-14 13:31 | disposition home or self-care (01) ==
LOC: ANHLAB 13:32
PROVIDERS: Visit Provider Obstetrics & Gynecology
DX: Z34.93 Encounter for supervision of normal pregnancy, unspecified, third trimester (principal); Z3A.00 Weeks of gestation of pregnancy not specified
CPT/HCPCS: 36415; 85027; 86592; 86703; 86850; 86900; 86901; G0432

== ENCOUNTER 2023-12-15 09:33 | Inpatient (IN) | payer OTHER, SELFPAY ==
[2023-12-15] VITALS (42 sets, daily range): BP systolic 100–152; BP diastolic 53–111; PULSE 66–97; RESP 15–20; TEMP 36.7–36.9; O2SAT 84–99; BMI 56.2
[2023-12-15] MEDS: ACETAMINOPHEN 500 MG TABLET 1000 MG PO (10:05)
[2023-12-15] MEDS: LACTATED RINGERS 1,000 ML 125 ML IV CONT ×2 (10:35→11:12)
[2023-12-15 10:52] LABS: Glucose Point of Care 118 mg/dl (65-105)
[2023-12-15] MEDS: ONDANSETRON INJ 4 MG/2 ML VIAL IV PUSH (11:54)
[2023-12-15] MEDS: FAMOTIDINE 20 MG/2 ML VIAL IV PUSH (11:54)
--- NOTE | 2023-12-15 11:56 | PM.IMHP ---
H&P: HPI History of Present Illness Date/Time: 12/15/23 11:56 Chief Complaint: repeat c section, cHTN on antihypertensives, T2DM Narrative: Patient is a 33 year old at 38 weeks who presents for repeat c section.Her has been complicated by T2DM on insulin pump and CGM, followed by MFM for glucose control, as well as chronic HTN well controlled on Procardia XL 60 daily. Most recently her EFW was >97% (9lbs 11oz). She also has a history of IIH, scheduled with neurology , and anxiety, on prozac. She also has a BMI of 56. She desires sterilization with this delivery after discussion of r/b/a. Patient reports good movement, denies contractions, vaginal bleeding, or leakage of fluid. No complaints. Review of Systems Review of Systems: All systems reviewed & are unremarkable except as noted in HPI and below PMFSH Past Medical History Medical History (Updated 12/15/23 @ 12:01 by Chon Roa MD) Asthma Bipolar disorder Borderline personality disorder Bronchitis Diabetes Hyperlipidemia Hypertension Pharyngitis PTSD (post-traumatic stress disorder) Viral syndrome Surgical History Surgical History (Updated 12/15/23 @ 12:01 by Chon Roa MD) H/O section X1 Family History Family History Mother Seizure Grandparent Hypertension Diabetes mellitus Grandparent Chronic obstructive pulmonary disease Social History Social History Social History: She lives with her fiance, daughter and her fiancee's parents. She works for place called [employer]. She just recently started there. She is a lifelong nonsmoker. She denies any alcohol marijuana or illicit drugs. Code status full code Smoking status: Never smoker Alcohol intake: never Substance use: never Substance use type: marijuana Other substance usage details: 3x per year for anxiety Do You Feel Safe in your Home?: Yes Lack of Transportation: No Lack of Food: Never True Current Housing: I Have Housing Concerned About Future Housing: No Difficulty Paying Gas/Electric Bills: No Difficulty Paying for Meds: No Currently Unemployed: No Education: High School Diploma/GED Difficulty w/ Childcare or Family Care: No Living arrangements: with family Gender identity (if verbalized by the patient): Female Spiritual care concerns: No Meds Home Medications and Allergies Home Medications Medication Instructions Recorded Confirmed Type aspirin 81 mg chewable tablet 81 mg PO DAILY 08/25/23 11/26/23 History magnesium oxide 400 mg (241.3 mg 400 mg PO DAILY 08/25/23 12/15/23 History magnesium) tablet nifedipine 30 mg tablet,extended 60 mg PO DAILY 08/25/23 11/26/23 History release 24 hr ondansetron 4 mg disintegrating 4 mg PO DAILY 08/25/23 12/15/23 History tablet vitamin with calcium 1 tablet PO DAILY 08/25/23 11/26/23 History no.72-iron 27 mg-folic acid 1 mg tablet ( Vitamins Plus Low Iron) insulin lispro 200 unit/mL (3 mL) See Rx Instructions .Route .COMPLEX 11/26/23 12/15/23 History subcutaneous pen (Humalog KwikPen U-200 Insulin) Allergies Allergy/AdvReac Type Severity Reaction Status Date / Time No Known Allergies Allergy Verified 11/26/23 14:34 Vital Signs Vital Signs - 24 hr 12/15/23 10:16 12/15/23 10:31 12/15/23 11:25 Pulse Rate 97 87 Blood Pressure 152/111 H 151/87 H Oxygen Delivery Room Air Exam Const: General: comfortable and no acute distress HENMT: Mouth: Yes moist mucous membranes Eyes: General: appearance normal, both eyes and all related structures Neck: Neck: supple Resp: Effort & Inspection: normal respiratory effort Cardio: Rate: regular rate GI: GI Palp: Yes Soft to palpation Skin: General skin exam: normal color Extrem: General: normal to inspection Psych: Mental Status
[2023-12-15] MEDS: ceFAZolin 3 GM/D5W 100 ML 100 ML IVPB (11:58)
--- NOTE | 2023-12-15 12:04 | WPDHPUPDATE1 ---
History and Physical Update Update Date/Time: 12/15/23 12:04 History and Physical has been reviewed, including an updated exam of the patient. There are NO changes in the patient's condition. Risks, benefits, and alternatives have been discussed and questions answered. Patient agrees to proceed with procedure.
--- NOTE | 2023-12-15 12:04 | WPDANESEPPF ---
Anes - Initial Pre Proc Eval Procedure: Operation Date: 12/15/23 12:00 Proposed Procedures p Section with Tubal Ligation - Chon Roa MD Date/Time: 12/15/23 12:04 Surgeon: Chon Roa MD Pre Op Diagnosis: C/S Patient Data Age: 33 Gender: F Height: 1.68 m Weight: 158 kg Last Vital Signs Pulse 87 12/15/23 10:31 BP 151/87 H 12/15/23 10:31 O2 Del Method Room Air 12/15/23 11:25 Allergies Allergy/AdvReac Type Severity Reaction Status Date / Time No Known Allergies Allergy Verified 11/26/23 14:34 Home Medications Medication Instructions Recorded Confirmed Type aspirin 81 mg chewable tablet 81 mg PO DAILY 08/25/23 11/26/23 History magnesium oxide 400 mg (241.3 mg 400 mg PO DAILY 08/25/23 12/15/23 History magnesium) tablet nifedipine 30 mg tablet,extended 60 mg PO DAILY 08/25/23 11/26/23 History release 24 hr ondansetron 4 mg disintegrating 4 mg PO DAILY 08/25/23 12/15/23 History tablet vitamin with calcium 1 tablet PO DAILY 08/25/23 11/26/23 History no.72-iron 27 mg-folic acid 1 mg tablet ( Vitamins Plus Low Iron) insulin lispro 200 unit/mL (3 mL) See Rx Instructions .Route .COMPLEX 11/26/23 12/15/23 History subcutaneous pen (Humalog KwikPen U-200 Insulin) Laboratory Tests 12/15/23 10:37 POC Capillary Glucose 118 H mg/dl (65-105) Patient hx anesthesia problems: other (Pt reports w prev labor, she had epidural placed, low bp dosing, then had to be gassed . ) Family hx anesthesia problems: none Results Review: All pre-operative results and documents have been reviewed as part of the pre-operative evaluation. [facility] Past Medical History Medical History (Updated 12/15/23 @ 12:01 by Chon Roa MD) Asthma Bipolar disorder Borderline personality disorder Bronchitis Diabetes Hyperlipidemia Hypertension Pharyngitis PTSD (post-traumatic stress disorder) Viral syndrome Surgical History Surgical History (Updated 12/15/23 @ 12:01 by Chon Roa MD) H/O section X1 Family History Family History Mother Seizure Grandparent Hypertension Diabetes mellitus Grandparent Chronic obstructive pulmonary disease Social History Social History Social History: She lives with her agustinance, daughter and her rodneye's parents. She works for place called [employer]. She just recently started there. She is a lifelong nonsmoker. She denies any alcohol marijuana or illicit drugs. Code status full code Smoking status: Never smoker Alcohol intake: never Substance use: never Substance use type: marijuana Other substance usage details: 3x per year for anxiety Do You Feel Safe in your Home?: Yes Lack of Transportation: No Lack of Food: Never True Current Housing: I Have Housing Concerned About Future Housing: No Difficulty Paying Gas/Electric Bills: No Difficulty Paying for Meds: No Currently Unemployed: No Education: High School Diploma/GED Difficulty w/ Childcare or Family Care: No Living arrangements: with family Gender identity (if verbalized by the patient): Female Spiritual care concerns: No Anes - Eval Final PreProcedure Day of Procedure 12/15/23 12:04 Patient weight: morbidly obese Heart: regular rate and rhythm Lungs: clear to auscultation Airway: Mallampati scale class II and special considerations poor dentition Neurological: alert and oriented Last oral intake: >/= 8 hours ASA classification: III Emergent: no Anesthetic plan: proceed Anesthesia type and monitoring: regional spinal Other findings: MRI brain 2022 nml. Results Review: All pre-operative results and documents have been reviewed as part of the pre-operative evaluation. Informed Consent: The patient's anesthetic plan and its attendant risks and benefits were discussed with
[2023-12-15] MEDS: KETOROLAC 30 MG/ML VIAL (*BKC) 15 MG IV PUSH (13:29)
--- NOTE | 2023-12-15 13:39 | W.PM.OBCSD ---
OB - Delivery Note Procedure Delivery date: 12/15/23 Pre-op diagnosis: Chronic Hypertension, Diabetes Mellitus and Previous Delivery Post-op Diagnosis: Same Induction method: None Delivery monitor: External FHT Prior to decision for section, ACOG/SMFM labor guidelines were considered and discussed with the patient and staff. Decision made to proceed with the section.: Yes Procedure Performed: Repeat Secondary branch: low cervical, transverse Surgeon: Chon Roa MD Anesthesia type: Spinal Description of Procedure/Findings: The patient was taken to the operating room where she was placed in the dorsal supine position with a leftward tilt. The electronic monitor was placed and heart rate was found to be reassuring. She was prepped and draped in the normal sterile fashion, and anesthesia was checked to be adequate. A Pfannenstiel skin incision was made with the scalpel and carried through to the underlying layer of fascia with the scalpel. The fascia was incised in the midline and the incision extended laterally with the Sanchez scissors and Bovie cautery. The superior aspect of the fascial incision was then grasped with Ran clamps, elevated, and the underlying rectus muscles dissected off bluntly and with Sanchez scissors and Bovie cautery. Attention was then turned to the inferior aspect of the fascial incision, which in similar fashion was grasped, elevated, and the rectus muscles dissected off.? The rectus muscles were then in the midline, and the peritoneum entered using a Pean clamp and Metzenbaum scissors. The peritoneal incision was extended superiorly and inferiorly with good visualization of the bladder. The bladder blade was then inserted and the vesicouterine peritoneum identified, grasped with a Peon clamp, and entered sharply with the Metzenbaum scissors. The incision was extended laterally and the bladder flap created digitally. With the bladder blade providing retraction and visualization, the lower uterine segment was incised in a transverse fashion with the scalpel. The uterine incision was then extended laterally. The bladder blade was removed and the infant's head was elevated and delivered atraumatically. The remainder of the infant was then delivered without difficulty, and the infant's nose and mouth were suctioned with the bulb suction. The umbilical cord was doubly clamped and cut. The infant was then handed off to the waiting nursing staff. Specimens then obtained as listed below. The placenta was then removed manually and the uterus was exteriorized and cleared of all clots and debris. The uterine incision was repaired with 0-Monocryl in a running, interlocked fashion. A bilateral salpingectomy was performed by grasping the right fallopian tube with a [place] and transecting the mesosalpinx using the Ligasure device. The tube was removed to the cornua of the uterus. The same procedure was performed on the left side. The posterior cul-de-sac was manually cleared of all clots and debris. The uterus was returned to the abdomen. The gutters were then manually cleared of all clots and debris.? The uterine incision was visualized to be hemostatic. The fascia was reapproximated with 0-Vicryl in a running fashion. The subcutaneous tissues were irrigated with warmed normal saline, and hemostasis was assured. The subcutaneous tissue was greater than 2 cm and closed in a running fashion with 2-0 plain gut suture.? The skin was closed with 4-0 monocryl in a running subcuticular stitch. A negative pressure dressing was the placed and a good seal was confirmed. Fundal pressure was applied to express remaining intrauterine clots and debris. The patient tolerated the procedure well. Sponge, lap, and needle counts were correct times three per nursing. The patient was taken to the recovery room in stable condition. Specimen: Yes Estimated Blood Loss: 225 Pathology: Yes Complications: No
[2023-12-15 14:50] LABS: Glucose Point of Care 104 mg/dl (65-105)
[2023-12-15] MEDS: OXYTOCIN 30 UNITS/NS 500 ML 30 UNITS/500 ML BAG 125 UNITS IV CONT (15:52)
[2023-12-15 20:28] LABS: Glucose Point of Care 85 mg/dl (65-105)
[2023-12-15] MEDS: KETOROLAC 15 MG/ML VIAL (*BKC) IV PUSH (22:28)
[2023-12-15] MEDS: ACETAMINOPHEN 325 MG TABLET 650 MG PO (22:28)
[2023-12-15] MEDS: DEXTROSE 5%/0.45% SOD CHL 1,000 ML 125 ML IV CONT (22:36)
--- NOTE | 2023-12-16 03:14 | PM.OBPNVD ---
OB - PN: Subj Subjective Date/time seen: 12/16/23 03:14 Interval history: post op day 1 section baby doing well pain not well managed no incisional complaints flatus present OB - PN: Obj Data Labs Labs: Laboratory Results - last 24 hr 12/15/23 12/15/23 12/15/23 10:37 14:47 20:18 POC Capillary Glucose 118 H 104 85 OB - PN A/P Plan day: 1 Plan: routine care Time Spent With Patient Time: Total time spent is greater than 50% in coordination of care (as documented) at patient's floor/unit and/or counseling patient: Review of Systems Review of Systems: All systems reviewed & are unremarkable except as noted in HPI and below Exam Const: General: cooperative Resp: Effort & Inspection: normal respiratory effort GI: Other: soft incision CDI Skin: General skin exam: normal color Neuro: General: patient oriented x3 Extrem: General: normal to inspection Psych: Appearance: grossly normal
[2023-12-16 05:54] VITALS: BP 134/64; PULSE 87; RESP 18; TEMP 36.6; O2SAT 96
[2023-12-16] MEDS: KETOROLAC 15 MG/ML VIAL (*BKC) IV PUSH ×2 (06:30→12:49)
[2023-12-16] MEDS: ACETAMINOPHEN 325 MG TABLET 650 MG PO ×3 (06:30→18:34)
[2023-12-16 06:57] LABS: Glucose Point of Care 134 mg/dl (65-105)
[2023-12-16 07:30] VITALS: BP 138/78; PULSE 80; RESP 16; TEMP 36.2; O2SAT 96
[2023-12-16] MEDS: MULTIVIT/MIN/PREN/FOL AC/IRON TABLET 1 TAB PO (07:56)
[2023-12-16] MEDS: DOCUSATE SODIUM 100 MG CAPSULE PO ×2 (07:56→17:05)
[2023-12-16] MEDS: SIMETHICONE 80 MG TAB.CHEW PO ×3 (07:56→17:05)
[2023-12-16] MEDS: NIFEdipine 30 MG TAB.ER.24 60 MG PO (07:56)
[2023-12-16] MEDS: LIDOCAINE 5% PATCH 1 PATCH TRANSDERM (07:57)
--- NOTE | 2023-12-16 08:01 | WPDANLDPN2 ---
Anes-Prog Note L&D Date/Time: 12/16/23 08:01 Comfortable throughout: section Neuraxial method: spinal Epidural/Spinal procedure site: clean & non-tender Neuro status: Neuro function grossly intact. Cardiovascular status: normal Respiratory status: normal Airway patency: baseline Mental status: baseline Post-Op hydration status: normal Vital Signs: Last Vital Signs Temp 36.6 C 12/16/23 05:54 Pulse 87 12/16/23 05:54 Resp 18 12/16/23 05:54 BP 134/64 12/16/23 05:54 Pulse Ox 96 12/16/23 05:54 O2 Del Method Room Air 12/16/23 05:54 Pain score (VAS): 310 I/O: Intake & Output 12/15/23 12/16/23 12/16/23 23:59 07:59 15:59 Intake Total 550 Output Total 210 1325 Balance -210 -349 Post-procedural complaints: pruritis mild, no treatment Patient feedback: Patient satisfied with anesthetic care.
--- NOTE | 2023-12-16 08:01 | WPDANLDNPN2 ---
Anes-Prog Note L&D-Neuraxial Date/Time: 12/16/23 08:01 Neuraxial medications: intrathecal PF morphine Opiod-related complaints: pruritis mild, no treatment Patient feedback: Patient satisfied with post-operative pain management.
[2023-12-16 09:29] LABS: Basophils Percent Auto 0.3 % (0.2-1.2); Eosinophils Absolute Auto 0.1 K/mm3 (0-0.3); Eosinophils Percent Auto 0.8 % (0-4.4); Hematocrit 33.3 % (37.0-47.0); Hemoglobin 9.7 g/dL (12.0-15.0); Immature Granulocyte Absolute 0.02 K/mm3 (0.00-0.031); Immature Granulocyte Percent A 0.3 % (0-0.5); Lymphocytes Absolute Auto 1.46 K/mm3 (0.9-3.2); Lymphocytes Percent Auto 18.5 % (18.3-44.2); Mean Corpuscular HGB Conc 29.1 g/dl (32-36); Mean Corpuscular Hemoglobin 22.5 pg (26-34); Mean Corpuscular Volume 77.3 fl (80-100); Mean Platelet Volume 10.6 fl (7.4-10.4); Monocytes Absolute Auto 0.5 K/mm3 (0.1-0.6); Monocytes Percent Auto 6.1 % (2.6-8.5); Neutrophils Absolute Auto 5.8 K/mm3 (1.3-6.7); Platelet Count Result 168 k/mm3 (150-375); Red Blood Count 4.31 M/mm3 (4.2-5.4); Red Cell Distribution Width 16.7 % (11.5-14.5); White Blood Count 7.9 K/mm3 (4.5-10.0)
[2023-12-16 09:50] LABS: Glucose 106 mg/dL (65-110)
[2023-12-16 10:56] LABS: Platelet Estimate Adequate (Adequate)
[2023-12-16 10:57] LABS: Anisocytosis 1+; Hypochromasia 1+; Schistocytes None Seen
--- NOTE | 2023-12-16 10:57 | PC.NURSE ---
[id number] Introductions were made, then consulted with patient to assess needs related to . Discussed with mother her?plans to feed?her infant and the?experience so far. Resources provided for inpatient and outpatient services with the feeding sheet, mom/baby guide and name written on the communication board. Mother voiced understanding of information and will call if there is a request for assistance. Reported to the Primary RN. [id number] Consulted with patient to assess needs related to after the [facility] supervisor paste mixing shared that mother was attempting to latch to her breast. We reviewed working with the infant, supporting breast, protecting her nipples with an optimal deep latch, good positioning, and good hand washing. Encouraged understanding the benefits of skin to skin, responding to feeding cues, frequencies of feeding 8-12 times in 24 hours (approximately 2-3 hours), duration of feedings, milk production, hand expression (mother expresses large drops of colostrum) intake/output feeding sheet and signs of adequate intake encouraging swallowing at the breast. Reviewed positioning and alignment, supporting breast, off-centered (asymmetrical latch) and leading with the chin with big, open, wide gape. Infant latched optimally to the right breast in football position. Education given to the mother of how to visualize the suckling (with good rocking jaw motion) swallows (dropping of the lower jaw) and how to listen for drinking at the breast (the ka sound). The was able to maintain latch without discomfort to mother. Resources used to facilitate learning were used from the visual handouts/ tool/mom and baby guide. Mother voiced understanding of the education shared, to call for assistance if the infant does not latch or if there is discomfort with . Reported to the Primary RN.
[2023-12-16 12:30] VITALS: BP 154/88; PULSE 86; RESP 18; TEMP 37.4; O2SAT 97
[2023-12-16] MEDS: POLYSACCHARIDE IRON COMPLEX 150 MG CAPSULE PO ×2 (12:48→17:05)
--- NOTE | 2023-12-16 15:21 | PC.NURSE ---
[id number] Purposefully rounded to assess for needs. Mother is attempting to latch infant to her breast independently and will not latch. We reviewed working with the , supporting breast, protecting her nipples with an optimal deep latch, good positioning, and good hand washing. Encouraged understanding the benefits of skin to skin, responding to feeding cues, frequencies of feeding 8-12 times in 24 hours (approximately 2-3 hours), duration of feedings, milk production, hand expression (mother is able to express large drops of colostrum) and signs of adequate intake encouraging swallowing at the breast. Reviewed positioning and alignment, supporting breast, off-centered (asymmetrical latch) and leading with the chin with big, open, wide gape. Infant latched optimally to the left breast in football position. The was able to maintain latch without discomfort to mother, however; for only 6 min. Infant is sleepy and reluctant. Parents have a bottle prepared to formula supplement their . We discussed risks and benefits of the choice and how to protect her milk supply. RN LC recommended considering pumping if infant doesn't latch frequently and effectively with also receiving formula bottles as well. Resources used to facilitate learning were used from the visual handouts/ tool/mom and baby guide. Mother voiced understanding of the education shared, to call for assistance if the does not latch or if there is discomfort with and encouraged to call for assistance while here as inpatient. Reported to the Primary RN.
[2023-12-16] MEDS: IBUPROFEN 600 MG TABLET PO (18:34)
[2023-12-16 21:18] VITALS: BP 139/78; PULSE 95; RESP 18; TEMP 36.7; O2SAT 97
[2023-12-17] MEDS: HYDROcodone/acetaminophen (*CRX) 5-325 MG TABLET 1 TAB PO (02:46)
[2023-12-17] MEDS: IBUPROFEN 600 MG TABLET PO ×3 (02:46→15:46)
--- NOTE | 2023-12-17 07:40 | PM.OBPNVD ---
OB - PN: Subj Subjective Date/time seen: 12/17/23 07:40 Interval history: post op day 2 section baby doing well no incisional complaints flatus present OB - PN: Obj Data Labs 12/16/23 09:11 12/16/23 09:11 Labs: Laboratory Results - last 24 hr 12/16/23 09:11 WBC 7.9 RBC 4.31 Hgb 9.7 L Hct 33.3 L MCV 77.3 L MCH 22.5 L MCHC 29.1 L RDW 16.7 H Plt Count 168 MPV 10.6 H Immature Gran % (Auto) 0.3 Neut % (Auto) 74.0 H Lymph % (Auto) 18.5 [place] % (Auto) 6.1 Eos % (Auto) 0.8 Baso % (Auto) 0.3 Lymph # (Auto) 1.46 [place] # (Auto) 0.5 Eos # (Auto) 0.1 Baso # (Auto) 0.0 Abs Immat Gran (auto) 0.02 Absolute Neuts (auto) 5.8 Absolute Nucleated RBC 0.000 Nucleated RBC % 0.0 Platelet Estimate Adequate Hypochromasia 1+ Anisocytosis 1+ Schistocytes None seen Glucose 106 OB - PN A/P Plan day: 2 Plan: routine care Time Spent With Patient Time: Total time spent is greater than 50% in coordination of care (as documented) at patient's floor/unit and/or counseling patient: Review of Systems Review of Systems: All systems reviewed & are unremarkable except as noted in HPI and below Exam Const: General: cooperative and healthy appearing Resp: Effort & Inspection: normal respiratory effort Cardio: Rate: regular rate GI: Other: incision CDI Back/Spine/Pelvis: Back: no CVA tenderness Skin: General skin exam: normal color
[2023-12-17 08:00] VITALS: BP 146/86; PULSE 100; RESP 18; TEMP 37.2; O2SAT 100
[2023-12-17] MEDS: ACETAMINOPHEN 325 MG TABLET 650 MG PO ×2 (08:56→15:46)
[2023-12-17] MEDS: SIMETHICONE 80 MG TAB.CHEW PO ×2 (08:57→15:46)
[2023-12-17] MEDS: DOCUSATE SODIUM 100 MG CAPSULE PO ×2 (08:57→17:05)
[2023-12-17] MEDS: POLYSACCHARIDE IRON COMPLEX 150 MG CAPSULE PO ×2 (08:57→17:05)
[2023-12-17] MEDS: NIFEdipine 30 MG TAB.ER.24 60 MG PO (08:57)
[2023-12-17] MEDS: MULTIVIT/MIN/PREN/FOL AC/IRON TABLET 1 TAB PO (08:57)
--- NOTE | 2023-12-17 10:29 | PC.NURSE ---
[id number] Mother verbalizes she is able to independently latch and denies any nipple discomfort. is currently meeting outcomes for output, jaundice, blood sugar and weight loss is at 9%. Mother is encouraged to call for assistance if her doesn?t latch, pain with latching, to initiate pumping to stimulate milk production, questions or concerns. Mother voiced understanding of information shared along with the mom/baby guide for an additional resource. Reported to the Primary RN.
[2023-12-17 20:06] VITALS: BP 146/89; PULSE 94; RESP 18; TEMP 36.8; O2SAT 98
--- NOTE | 2023-12-18 05:58 | PM.OBPNVD ---
OB - PN: Subj Subjective Date/time seen: 12/18/23 05:58 Interval history: post op day 2 section baby doing well no incisional complaints flatus present Patient comments: no complaints, pain well controlled, incisional pain, tolerating diet and flatus present OB - PN: Obj Data Labs 12/16/23 09:11 12/16/23 09:11 OB - PN A/P Plan day: 3 Plan: routine care, discharge home and other Comments: Incision check in one week. Given precautions Time Spent With Patient Time: Total time spent is greater than 50% in coordination of care (as documented) at patient's floor/unit and/or counseling patient: Exam Const: General: comfortable, no acute distress and alert Resp: Effort & Inspection: normal respiratory effort Auscultation: no crackles, no rales and no rhonchi Cardio: Rate: regular rate Heart sounds: no click, no murmurs and no rubs GI: Inspection: non-distended GI Palp: No Tenderness to palpation present (GI) Auscultation: normal bowel sounds Other: Incision - CDI Extrem: General: normal to inspection, no pedal edema and no calf tenderness
--- NOTE | 2023-12-18 05:58 | PM.OBDSVD ---
DS: Admitting Diagnosis Discharge Date 12/18/2023 Admitting Diagnosis term DS: Discharge Diagnosis Discharge Diagnosis (1) delivery delivered: Code(s): O82 - Encounter for delivery without indication Status: Acute OB - DS: Summary OB Procedures : None OB Procedures Intrapartum: OB Procedures: : None Peripartum Data Procedures: Procedures Operation Date: 12/15/23 12:00 Actual Procedure Side Surgeon p Section with Tubal Ligation Not Applicable Chon Roa MD Time Spent with Patient Time attestation: Total time spent providing and/or coordinating discharge services: DS: Data Data Completed and Pending Pending studies at discharge: Pending at discharge 12/15/23 14:16 Surgical [PTH] Routine Discharge Plan Discharge Discharging Clinician: Kofi Gaytan Patient Disposition: Home, Self-Care Activity: pelvic rest Diet: regular Patient Instructions: Antibiotic Form Stand Alone Forms: General Discharge Information Follow-up/Referrals: Kofi Gaytan MD [Physician] - Discharge Medications: New oxycodone-acetaminophen 5-325 mg tablet 1 tablet PO Q4H PRN (Reason: pain) Qty: 25 0RF Continued Humalog KwikPen Insulin 200 unit/mL (3 mL) Insulin Pen See Rx Instructions .ROUTE .COMPLEX Rx Instructions: sliding scale dose subcutaneously ;Omnipod doses insulin as needed. nifedipine 30 mg tablet extended release 24hr 60 mg PO DAILY magnesium oxide 400 mg (241.3 mg magnesium) tablet 400 mg PO DAILY aspirin 81 mg Tablet,Chewable 81 mg PO DAILY ondansetron 4 mg tablet,disintegrating 4 mg PO DAILY Vitamin Plus Low Iron 27 mg iron- 1 mg tablet 1 tablet PO DAILY Date of admission: 12/15/23 09:33 Primary Care Provider: Juve Beckham Admitting Provider: Chon Roa Attending physician on admission: Chon Roa Condition: Stable
[2023-12-18] MEDS: MULTIVIT/MIN/PREN/FOL AC/IRON TABLET 1 TAB PO (09:20)
[2023-12-18] MEDS: NIFEdipine 30 MG TAB.ER.24 60 MG PO (09:20)
[2023-12-18] MEDS: POLYSACCHARIDE IRON COMPLEX 150 MG CAPSULE PO ×2 (09:20→17:53)
[2023-12-18] MEDS: SIMETHICONE 80 MG TAB.CHEW PO ×2 (09:20→17:53)
[2023-12-18] MEDS: DOCUSATE SODIUM 100 MG CAPSULE PO ×2 (09:21→17:53)
[2023-12-18 09:30] VITALS: BP 145/99; PULSE 95; RESP 18; TEMP 37; O2SAT 100
[2023-12-18 20:10] VITALS: BP 158/104; PULSE 99; RESP 18; TEMP 36.7; O2SAT 100
[2023-12-18 20:30] VITALS: BP 159/97; PULSE 102; O2SAT 96
[2023-12-18 20:48] VITALS: PULSE 108
[2023-12-18] MEDS: LABETALOL HCL 100 MG TABLET 200 MG PO (20:48)
[2023-12-18] MEDS: IBUPROFEN 600 MG TABLET PO (23:11)
[2023-12-18] MEDS: ACETAMINOPHEN 325 MG TABLET 650 MG PO (23:13)
[2023-12-18 23:15] VITALS: BP 141/87
[2023-12-19] MEDS: IBUPROFEN 600 MG TABLET PO ×2 (07:41→13:45)
[2023-12-19] MEDS: ACETAMINOPHEN 325 MG TABLET 650 MG PO ×2 (07:41→13:45)
[2023-12-19 07:42] VITALS: BP 136/86; PULSE 93; RESP 20; TEMP 36.4; O2SAT 100
[2023-12-19 08:25] VITALS: PULSE 90
[2023-12-19] MEDS: POLYSACCHARIDE IRON COMPLEX 150 MG CAPSULE PO (08:25)
[2023-12-19] MEDS: MULTIVIT/MIN/PREN/FOL AC/IRON TABLET 1 TAB PO (08:25)
[2023-12-19] MEDS: LABETALOL HCL 100 MG TABLET 200 MG PO (08:25)
[2023-12-19] MEDS: SIMETHICONE 80 MG TAB.CHEW PO (08:25)
[2023-12-19] MEDS: DOCUSATE SODIUM 100 MG CAPSULE PO (08:25)
[2023-12-19] MEDS: NIFEdipine 30 MG TAB.ER.24 60 MG PO (08:26)
--- NOTE | 2023-12-19 10:21 | PM.OBPNVD ---
OB - PN: Subj Subjective Date/time seen: 12/19/23 10:21 Interval history: post op day 2 section baby doing well no incisional complaints flatus present Patient comments: no complaints, pain well controlled, incisional pain, tolerating diet and flatus present OB - PN: Obj Data Labs 12/16/23 09:11 12/16/23 09:11 OB - PN A/P Plan day: 3 Plan: routine care, discharge home and other Comments: Incision check in one week. Given precautions Time Spent With Patient Time: Total time spent is greater than 50% in coordination of care (as documented) at patient's floor/unit and/or counseling patient: Exam Const: General: comfortable, no acute distress and alert Resp: Effort & Inspection: normal respiratory effort Auscultation: no crackles, no rales and no rhonchi Cardio: Rate: regular rate Heart sounds: no click, no murmurs and no rubs GI: Inspection: non-distended GI Palp: No Tenderness to palpation present (GI) Auscultation: normal bowel sounds Other: Incision - CDI Extrem: General: normal to inspection, no pedal edema and no calf tenderness
[2023-12-19] MEDS: MEASLES,MUMPS,RUBELLA VACCINE 0.5 ML VIAL SUB-Q (13:45)
== END 2023-12-19 14:00 | disposition home or self-care (01) | DRG 539 ==
LOC: ANHOBPP 09:47 → ANHOB2 12-18 06:00 → ANHOBPP 12-21 13:30
PROVIDERS: Admitting Provider Obstetrics & Gynecology; Visit Provider Obstetrics & Gynecology
PROC: 10D00Z1 Extraction of Products of Conception, Low, Open Approach (ICD-10-PCS; CPT 59514; principal; 2023-12-15 12:00)
DX: O34.219 Maternal care for unspecified type scar from previous cesarean delivery (principal); Z30.2 Encounter for sterilization; O24.12 Pre-existing type 2 diabetes mellitus, in childbirth; O10.92 Unspecified pre-existing hypertension complicating childbirth; O99.344 Other mental disorders complicating childbirth; F41.9 Anxiety disorder, unspecified; Z3A.38 38 weeks gestation of pregnancy; Z37.0 Single live birth; Z96.41 Presence of insulin pump (external) (internal)
CPT/HCPCS: 36415; 82947; 82948; 85025; 85027; 86592; 86703; 86850; 86900; 86901; 88302; 88307; 90710; A9270; G0432; J0690; J1885; J2250; J2274; J2371; J2405; J2590; J7120

== ENCOUNTER 2023-12-21 11:58 | Observation (INO) | payer OTHER, SELFPAY ==
[2023-12-21] VITALS (16 sets, daily range): BP systolic 120–169; BP diastolic 71–117; PULSE 79–99; RESP 22; TEMP 36.2; BMI 52.5
--- NOTE | 2023-12-21 13:30 | OBADM ---
This patient, Jil Kidd, admitted to the OB room 115 for observation for abdominal pain. Patient/family oriented to hospital policies and general routines including ID bracelet, bed and alarms, visiting hours, pain management, procedures, bathroom and other care routines, personal items, smoking policy, room service/diet, and visiting hours. Patient/Family are encouraged to report perceived risks to care and to ask questions if they do not understand what they are told or what they should do.
--- NOTE | 2023-12-21 13:40 | PC.NURSE ---
Pt given breast pump and supplies to pump since she hasn't nursed since this morning.
[2023-12-21 14:09] LABS: Basophils Percent Auto 0.4 % (0.2-1.2); Eosinophils Absolute Auto 0.2 K/mm3 (0-0.3); Eosinophils Percent Auto 2.4 % (0-4.4); Hematocrit 37.2 % (37.0-47.0); Immature Granulocyte Absolute 0.02 K/mm3 (0.00-0.031); Immature Granulocyte Percent A 0.3 % (0-0.5); Lymphocytes Absolute Auto 1.84 K/mm3 (0.9-3.2); Lymphocytes Percent Auto 25.8 % (18.3-44.2); Mean Corpuscular HGB Conc 29.6 g/dl (32-36); Mean Corpuscular Hemoglobin 22.4 pg (26-34); Mean Corpuscular Volume 75.9 fl (80-100); Mean Platelet Volume 10.2 fl (7.4-10.4); Monocytes Absolute Auto 0.4 K/mm3 (0.1-0.6); Neutrophils Absolute Auto 4.7 K/mm3 (1.3-6.7); Neutrophils Percent Auto 65.1 % (45.5-73.1); Platelet Count Result 247 k/mm3 (150-375); Red Cell Distribution Width 17.3 % (11.5-14.5); White Blood Count 7.1 K/mm3 (4.5-10.0)
[2023-12-21 14:18] LABS: Alanine Aminotransferase 38 U/L (6-35); Albumin Level 3.5 g/dL (3.5-5.1); Alkaline Phosphatase 96 U/L (38-126); Anion Gap 6 mmol/L (4-12); Aspartate Amino Transferase 28 U/L (14-36); Bilirubin,Total 0.7 mg/dL (0.2-1.3); Blood Urea Nitrogen 11 mg/dL (7-17); Calcium 9.3 mg/dL (8.4-10.2); Carbon Dioxide 24 mmol/L (22-30); Chloride 107 mmol/L (98-107); Estimated Glomerular Filt Rate > 60; Glucose 88 mg/dL (65-110); Potassium 3.9 mmol/L (3.4-5.0); Sodium 137 mmol/L (137-145); Uric Acid 6.1 mg/dL (2.5-7.5)
[2023-12-21 14:22] LABS: Appearance Urine Clear (Clear); Bacteria Urine None Seen /hpf; Bilirubin Urine Negative (Negative); Blood Urine 3+ (Negative); Color Urine Yellow (Yellow); Glucose Urine UA Negative (Negative); Ketones Urine Negative (Negative); Leukocyte Esterase Ur 1+ LEU/UL (Negative); Nitrate Urine Negative (Negative); Non Pathogenic Casts 0-2; Protein Urine 1+ mg/dL (Negative); RBC Urine >100 /hpf (0-2); Specific Grav Ur 1.019 (1.001-1.035); Squamous Epithelial Cell Urine Few /hpf (Few); pH Urine 7.5 (5.0-9.0)
[2023-12-21 14:31] LABS: Add Urine Microscopic? YES; Hypochromasia 1+; Platelet Estimate Adequate (Adequate); Schistocytes None Seen
--- NOTE | 2023-12-21 15:00 | PC.NURSE ---
Cameron Chavez [facility] informed of BP's, lab results, afebrile, old bruise on abdomen that is purplish and green in color. Discussed pt's chronic hypertension that she was on Procardia XL 60 mg during , her BP's became elevated and she was swithched to Labetalol 200 mg PO BID, but was discharged without any meds. Pt also has not been taking Tylenol and Motrin since she was discharged on Wednesday. Pt has 1 dose of [place] this morning just after midnight when her pain was so bad she was crying. Pt has bilateral upper abdominal pressure pain (right under her rib cage) and incisional tearing pain. Orders received for Labetalol and pain control.
[2023-12-21] MEDS: LABETALOL HCL 100 MG TABLET 200 MG PO (15:26)
[2023-12-21] MEDS: IBUPROFEN 600 MG TABLET PO (15:27)
[2023-12-21] MEDS: HYDROcodone/acetaminophen (*CRX) 10-325 MG TABLET 1 TAB PO (15:28)
--- NOTE | 2023-12-21 16:17 | PC.NURSE ---
Cameron Chavez CNM called to check on pt. Informed of improvement in BP and pain. To continue to monitor.
--- NOTE | 2023-12-21 17:13 | PC.NURSE ---
Cameron DANIELM called back to check on pt and informed pt's pain is down to a 2 out of 10 and updated on BP's. Order received to send RX for Labetalol and discharge pt to home. Pt has appointment with CNM in the office tomorrow.
--- NOTE | 2023-12-22 19:44 | P.PNOB_ITS ---
OB - Triage/Final Diagnosis Visit Information Date of evaluation: 12/21/23 Reason for evaluation: other (abdominal pain) Comments/Additional reasons for admission: I have assessed the risk for this patient, Jil Roman Marti, and determined that she would benefit from observation care. Evaluation Laboratory results: Laboratory Tests 12/21/23 13:56 WBC 7.1 RBC 4.90 Hgb 11.0 L Hct 37.2 MCV 75.9 L MCH 22.4 L MCHC 29.6 L RDW 17.3 H Plt Count 247 MPV 10.2 Immature Gran % (Auto) 0.3 Neut % (Auto) 65.1 Lymph % (Auto) 25.8 [place] % (Auto) 6.0 Eos % (Auto) 2.4 Baso % (Auto) 0.4 Lymph # (Auto) 1.84 [place] # (Auto) 0.4 Eos # (Auto) 0.2 Baso # (Auto) 0.0 Abs Immat Gran (auto) 0.02 Absolute Neuts (auto) 4.7 Absolute Nucleated RBC 0.000 Nucleated RBC % 0.0 Platelet Estimate Adequate Hypochromasia 1+ Schistocytes None seen Sodium 137 Potassium 3.9 Chloride 107 Carbon Dioxide 24 Anion Gap 6 BUN 11 D Creatinine 0.60 L Estim Creat Clear Calc Not Reportable Estimated GFR > 60 Glucose 88 Uric Acid 6.1 Calcium 9.3 Total Bilirubin 0.7 AST 28 ALT 38 H Alkaline Phosphatase 96 Total Protein 7.0 Albumin 3.5 Urine Color Yellow Urine Appearance Clear Urine pH 7.5 Ur Specific [place] 1.019 Urine Protein 1+ H Urine Glucose (UA) Negative Urine Ketones Negative Ur Blood (Man) 3+ H Urine Nitrate Negative Urine Bilirubin Negative Urine Urobilinogen 1.0 Ur Leukocyte Esterase 1+ H Urine RBC >100 H Urine WBC 6-10 H Ur Squamous Epith Cells Few Urine Bacteria None seen Urine Casts 0-2
== END 2023-12-21 18:32 | disposition home or self-care (01) ==
PROVIDERS: Advanced Practice Midwife; Admitting Provider Obstetrics & Gynecology; Visit Provider Obstetrics & Gynecology
DX: O26.899 Other specified pregnancy related conditions, unspecified trimester (principal); R10.9 Unspecified abdominal pain; Z3A.00 Weeks of gestation of pregnancy not specified
CPT/HCPCS: 36415; 80053; 81001; 84550; 85025; A9270; G0378; G0379

== ENCOUNTER 2024-04-18 07:11 | Outpatient (CLI) | payer OTHER, SELFPAY ==
[2024-04-17 08:06] VITALS: BMI 56.9
--- NOTE | 2024-04-17 08:13 | PC.NURSE ---
Pre Radiology instructions Report to the outpatient hospital for special care on date 04/18/24_ at time _0700 for procedure Time: 0900 _ YOU MAY BE MONITORED AT HOSPITAL FOR UP TO 4 HOURS AFTER YOUR PROCEDURE. A visitor will be allowed to accompany the patient into the hospital. You and your visitor will be asked to self-screen and do not enter if you have any COVID symptoms. A mask is OPTIONAL within the hospital. Patients are to have no food or drink 6 hours prior to procedure time Driving will be restricted after the procedure, you must have a person to drive you home. Labs will be drawn in preop area and once reviewed, you will be taken to radiology area for procedure. When the procedure is completed, you will be taken to outpatient where you will be monitored for several hours. You may have one visitor in this area. Other than holding anti-coagulants, patient may take other medication(s) as scheduled. Prior to your appointment date patients are instructed to hold anti-coagulants after discussing with ordering provider to stop. If unable to discontinue anti-coagulants please notify radiologist. ? No aspirin or warfarin (Coumadin) for 7 days prior to the procedure. ? No clopidogrel (Plavix), ticagrelor (Brilinta), prasugrel (Effient) or dabigatran (Pradaxa) for 5 days prior to the procedure. ? No rivaroxaban (Xarelto), apixaban (Eliquis), dipyridamole (Aggrenox or Persantine) or cilostazol (Pletal) for 2 days prior to the procedure. Medications to discontinue per physician: ___NONE Date to take last dose: Please leave all valuables, including medications, at home the day of procedure. The hospital will not accept responsibility for valuables. Wear comfortable, loose fitting clothing.? Follow any additional instructions given to you from ordering provider. Telephone instructions given to _PATIENT_and asked if any additional questions and then verbalized understanding. Patient advised to call scheduling provider office or registration scheduling [phone] if any additional questions.
[2024-04-18] VITALS (9 sets, daily range): BP systolic 133–146; BP diastolic 68–85; PULSE 81–88; RESP 16–20; TEMP 36.2; O2SAT 97–100
--- NOTE | ~2024-04-18 | XR_ITS ---
EXAMINATION: XR lumbar puncture diagnostic DATE: 04/18/2024 09:45 INDICATION: Concern for idiopathic intracranial hypertension TECHNIQUE: The procedure including the risks and benefits was discussed with the patient. Risks discu ssed included spinal headache, cerebrospinal fluid leak, bleeding, and infection. The patient underst ood the risks and agreed to proceed. A timeout was performed to verify the patient's name, date of , and procedure to be performed. The skin overlying the L3-L4 level was prepped and draped in usual sterile fashion. Subcutaneous 1% lidocaine was used for local anesthesia. A 22 gauge spinal n eedle was advanced under fluoroscopic guidance. The needle was removed and the entry site was cleaned and dressed. There were no immediate complications. A total of 1 fluoroscopic image(s) were obtaine d. The amount of fluoroscopy time used during this procedure was 0.1 minutes. Total DAP was 1.099 Gyc m^2. The patient was taken to the nursing area for observation. FINDINGS: Real-time fluoroscopy demonstrates the needle at the L3-L4 level. Opening pressure was 32 c m water. (Normal range is variably defined as 6-20 cm water and up to 25 cm water in obese patients. Pressure >25 cm water is one of the modified Dandy criteria for idiopathic intracranial hypertension) . 14 mL of clear, colorless fluid was collected in 4 tubes. IMPRESSION: 1. Successful fluoro-guided lumbar puncture with elevated opening pressure of 32 cm water. Reviewed, dictated and finalized at location A. IMPRESSION: 1. Successful fluoro-guided lumbar puncture with elevated opening pressure of 3 2 cm water.
--- NOTE | 2024-04-18 08:04 | SUR.PREOP ---
0804-Jazmyne in radiology aware pt here, VS charted, labs drawn and sent to lab and she will f/u on results.
[2024-04-18 08:08] LABS: Platelet Count Result 236 k/mm3 (150-375)
[2024-04-18 08:16] LABS: INR 0.9; Prothrombin Time 12.1 Seconds (11.1-14.7)
[2024-04-18 10:06] LABS: Glucose CSF 125 mg/dL (40-70); Total Protein CSF 45 mg/dL (12-60)
[2024-04-18 10:20] LABS: Appearance CSF Clear (Clear); CSF source CSF; Color CSF Colorless (Colorless); Nucleated Cell CSF 6 /uL (0-5); Red Blood Cell CSF 11 (0-2)
[2024-04-18 10:27] LABS: Lymphocytes CSF 99 % (40-80); Neutrophils CSF 1 % (0-6)
== END 2024-04-18 12:08 | disposition home or self-care (01) ==
PROVIDERS: Radiology Diagnostic Radiology; Referring Provider Student in an Organized Health Care Education/Training Program; Visit Provider Radiology Diagnostic Radiology
PROC: 009U3ZZ Drainage of Spinal Canal, Percutaneous Approach (ICD-10-PCS; CPT 62328; principal; 2024-04-18 09:00)
DX: G93.2 Benign intracranial hypertension (principal)
CPT/HCPCS: 36415; 62328; 82945; 84157; 85049; 85610; 87070; 89051

== ENCOUNTER 2024-04-21 21:43 | Emergency (ER) | payer OTHER, SELFPAY ==
[2024-04-22 01:36] LABS: Glucose Point of Care 189 mg/dl (65-105)
[2024-04-22 02:46] VITALS: BP 150/105; PULSE 98; RESP 20; TEMP 36.5; O2SAT 99
[2024-04-22 05:38] VITALS: BP 154/90; PULSE 98; RESP 20; O2SAT 97
[2024-04-22 06:59] VITALS: BP 129/69; PULSE 86; RESP 19; O2SAT 97
[2024-04-22 07:27] VITALS: BP 129/76; PULSE 95; RESP 17; TEMP 36.6; O2SAT 98
[2024-04-22 07:28] VITALS: RESP 17; O2SAT 98
--- NOTE | 2024-04-22 07:35 | ED.GENADULT ---
HPI - General Adult General Chief complaint: Recheck/Abnormal Lab/Rx Stated complaint: headache Time Seen by Provider: 04/22/24 06:50 History of Present Illness HPI narrative: 33-year-old female presenting to the emergency department for evaluation for headache. Patient states she does have daily headaches but this headache feels different. Patient states her typical headache starts to the front and radiates across her entire head. Patient states her current headache starts in the front stays localized in the front. Patient does report that the headache is sometimes worsened with position. Patient did have a lumbar puncture done on Wednesday. On Wednesday evening patient went to a hospital in [place] and was treated with IV fluids. Patient states that her headache is still persistent. At time of evaluation patient appears to be in no distress and is resting comfortably. Related Data Home Medications Medication Instructions Recorded Confirmed magnesium oxide 400 mg (241.3 mg 400 mg PO DAILY 08/25/23 04/18/24 magnesium) tablet albuterol sulfate 90 mcg/actuation 2 inh inhalation Q4H PRN Shortness 04/17/24 04/18/24 aerosol inhaler Of Breath Or Wheezing labetalol 200 mg tablet 200 mg PO DAILY 04/17/24 04/18/24 Allergies Allergy/AdvReac Type Severity Reaction Status Date / Time No Known Allergies Allergy Verified 04/21/24 21:48 Review of Systems Review of Systems: All systems reviewed & are unremarkable except as noted in HPI and below PMFSH Past Medical History Medical History Asthma Bipolar disorder Borderline personality disorder Bronchitis Diabetes Hyperlipidemia Hypertension Pharyngitis PTSD (post-traumatic stress disorder) Viral syndrome Surgical History Surgical History H/O section X1 Family History Family History Mother Seizure Grandparent Hypertension Diabetes mellitus Grandparent Chronic obstructive pulmonary disease Social History Social History Social History: She lives with her fiance, daughter and her fiancee's parents. She works for place called [employer]. She just recently started there. She is a lifelong nonsmoker. She denies any alcohol marijuana or illicit drugs. Code status full code Smoking status: Never smoker Alcohol intake: never Substance use: former Substance use type: marijuana Other substance usage details: 3x per year for anxiety Last use: 2021 Do You Feel Safe in your Home?: Yes Lack of Transportation: No Lack of Food: Never True Current Housing: I Have Housing Concerned About Future Housing: No Difficulty Paying Gas/Electric Bills: No Difficulty Paying for Meds: No Currently Unemployed: No Education: High School Diploma/GED Difficulty w/ Childcare or Family Care: No Living arrangements: with family Gender identity (if verbalized by the patient): Female Spiritual care concerns: No Exam Narrative: APPEARANCE: Well appearing, no pain, no distress, well-nourished. HEAD: normocephalic, atraumatic. EYES: PERRLA/EOMI, conjunctivae clear. NOSE: Normal no drainage EARS:TMS clear with good light reflex. THROAT: Pharynx clear, no exudate. NECK: Supple. No adenopathy, no masses. RESPIRATORY: Airway patent, respirations nonlabored. Clear to auscultation bilaterally, no rales, rhonchi, wheezing. CARDIOVASCULAR: Regular rate and rhythm without murmurs rubs or gallops. ABDOMINAL: Soft, nontender, nondistended, normal bowel sounds MUSCULOSKELETAL: Moves all extremities. Strength/ROM intact, No edema, No calf tenderness. NEURO: Alert. Cranial nerves II through XII intact. Grossly intact SKIN: Warm, dry. Normal Color Course Course Emergency Course: Patient felt improved with treatment. Vital S
[2024-04-22] MEDS: fentaNYL CITRATE INJ (*CRX) 100 MCG/2 ML VIAL 50 MCG IV PUSH (08:06)
[2024-04-22] MEDS: ACETAMINOPHEN 500 MG TABLET 1000 MG PO (08:07)
[2024-04-22] MEDS: SODIUM CHLORIDE 0.9% IV 1,000 ML 999 ML IV CONT (08:08)
[2024-04-22] MEDS: KETOROLAC 15 MG/ML VIAL (*BKC) IV PUSH (10:06)
[2024-04-22] MEDS: PROCHLORPERAZINE EDISYLATE 10 MG/2 ML VIAL IV PUSH (10:06)
[2024-04-22 10:13] VITALS: BP 132/58; PULSE 88; RESP 19; O2SAT 99
== END 2024-04-22 10:23 | disposition home or self-care (01) ==
PROVIDERS: Emergency Provider Emergency Medicine
DX: R51.9 Headache, unspecified (principal); I10 Essential (primary) hypertension; E11.9 Type 2 diabetes mellitus without complications; E78.5 Hyperlipidemia, unspecified; J45.909 Unspecified asthma, uncomplicated; Z79.899 Other long term (current) drug therapy
CPT/HCPCS: 82948; 96361; 96374; 96375; 99284; A9270; J0780; J1885; J3010; J7030

== ENCOUNTER 2025-07-18 21:55 | Emergency (ER) | payer OTHER, SELFPAY ==
--- NOTE | ~2025-07-18 | CT_ITS ---
CTA NECK, CTA HEAD Clinical History: dizziness; left distal tongue numbness Comparison: Noncontrast CT brain today CTA neck 01/07/2023 TECHNIQUE: Helical images thoracic inlet to vertex IV contrast information not listed in PACS Coronal, sagittal reformats. Multi planar MIPS CT images acquired with automatic exposure control for dose reduction DLP: 1254 mGy-cm Findings: NASCET Criteria utilized CTA NECK Aortic arch: No aneurysm or dissection. Great vessel origins: No stenosis. CCAs: No stenosis. Cervical ICAs: No stenosis. Vertebral Arteries: Patent. Lung Apices: Clear. Thyroid: Unremarkable. Nodes: No enlarged nodes. Bones: No acute bony abnormality. CTA HEAD: Aneurysms: None. Intracranial ICAs: Patent, unremarkable. ACAs and their distal branches: Right GERRI diffusely small caliber. A-Comm: Identified. Patent, unremarkable. MCAs and their distal branches: Patent, unremarkable. Basilar artery: Patent, unremarkable. stud sheep farmer and their distal branches: Left P1 diminutive. P-Comms: Identified. Patent, unremarkable. IMPRESSION: CTA NECK: 1. No acute findings. CTA HEAD: 1. No acute findings. Reviewed, dictated and finalized at location R. UM TESTER CANS
--- NOTE | ~2025-07-18 | CT_ITS ---
CT HEAD NON-CONTRAST Clinical History: dizziness; impaired taste tip of tongue(CN V/VII?) Comparison: MR brain 01/07/2023 Technique: Unenhanced axial images skull base to vertex Coronal, sagittal reformats CT images acquired with automatic exposure control for dose reduction DLP: 605 mGy-cm Findings: Sulci, ventricles: Unremarkable. No intracerebral hemorrhage. No evidence acute territorial infarct. No mass effect, midline shift. Bony calvarium intact. Visualized paranasal sinuses: Clear. Mastoid air cells: Clear. IMPRESSION: 1. No acute intracranial findings. Reviewed, dictated and finalized at location R. CORRESPONDENT
--- NOTE | ~2025-07-18 | XR_ITS ---
Examination: XR chest 2V Clinical History: dizziness Comparison: 02/02/2022 Technique: PA and Lateral Findings: Cardiomediastinal silhouette normal size and configuration. Lungs clear. No acute bony abnormality. IMPRESSION: 1. No acute cardiopulmonary findings. Reviewed, dictated and finalized at location R. GER RESIDENTIAL
[2025-07-18 21:58] VITALS: BP 185/90; PULSE 99; RESP 18; TEMP 36.4; O2SAT 100
[2025-07-19] VITALS (18 sets, daily range): BP systolic 111–158; BP diastolic 77–104; PULSE 73–111; RESP 11–23; O2SAT 94–100
[2025-07-19 00:37] LABS: Hematocrit 41.0 % (37.0-47.0); Hemoglobin 12.5 g/dL (12.0-15.0); Immature Granulocyte Percent A 0.4 % (0-0.5); Lymphocytes Absolute Auto 2.41 K/mm3 (0.9-3.2); Mean Corpuscular HGB Conc 30.5 g/dl (32-36); Mean Corpuscular Hemoglobin 24.1 pg (26-34); Mean Corpuscular Volume 79.0 fl (80-100); Nucleated Red Blood Cells Absolute Auto 0.000 K/mm3 (0.0-0.012); Nucleated Red Blood Cells Perc 0.0 % (0.0-0.2); Platelet Count Result 242 k/mm3 (150-375); Red Blood Count 5.19 M/mm3 (4.2-5.4); White Blood Count 7.7 K/mm3 (4.5-10.0)
--- NOTE | 2025-07-19 00:38 | ECG_ITS ---
Test Date: 2025-07-19 00:38:02 Measurements Intervals [place] Rate: 86 P: 56 ME: 144 QRS: 34 QRSD: 96 T: 14 QT: 366 QTc: 439 Interpretive Statements SINUS RHYTHM POSSIBLE LEFT ATRIAL ENLARGEMENT [-0.1mV P-WAVE IN V1/V2] No previous ECG available for comparison Electronically Signed On 07-19-2025 12:26:35 PEANUT SHAKER by Dutch Cherry M.D.
[2025-07-19 01:12] LABS: BEDSIDEPREGUCG Negative (Negative)
[2025-07-19 01:22] LABS: Alanine Aminotransferase 29 U/L (6-35); Albumin Level 3.7 g/dL (3.5-5.1); Alkaline Phosphatase 105 U/L (38-126); Anion Gap 5 mmol/L (4-12); Aspartate Amino Transferase 27 U/L (14-36); Bilirubin,Total 0.7 mg/dL (0.2-1.3); Blood Urea Nitrogen 10 mg/dL (7-17); Calcium 9.0 mg/dL (8.4-10.2); Carbon Dioxide 28 mmol/L (22-30); Chloride 102 mmol/L (98-107); Estimated CRCL calculation 176 ml/min; Estimated Glomerular Filt Rate > 60; Glucose 326 mg/dL (65-110); Potassium 3.8 mmol/L (3.4-5.0); Sodium 135 mmol/L (137-145); Total Protein 7.5 g/dL (6.3-8.2)
--- OUTSIDE RECORDS SUMMARY | 2025-07-19 01:40 | XMS_ITS | Clinical Summary ---
Author Organization [facility] Address [address] [place] [address] Care Team Providers Care Mercury Cell Cleaner Name Role Phone Chela Casillas MD Primary Care Provider [phone] Source Comments [facility] [employer],non-owned Affiliates and Associated Physician Practices is amultiple site organization consisting of ambulatory clinics and hospital sitesin [place], [place], [place] and [place]. This disclosure is being madepursuant to the Care Everywhere program and may not contain all information available regarding this patient. Last updated 18.[facility] [employer] Allergies Active Allergy Reactions Criticality Noted Date Comments Bee Pollen Unknown 07/19/2023 Extract Of Poison Marianne Unknown 07/19/2023 Medications * Be aware that medications may not be up to date on this document. Alwaysverify current medications with the patient. albuterol HFA (PROAIR HFA) 108 (90 BASE) MCG/ACT inhaler Inhale 2 (two) puffs by mouth 9 Active fluticasone-sa lmeterol 55-14 MCG/ACT inhaler INHALE 1 PUFF BY MOUTH TWICE DAILY 9 Active MV-Min-Fe Fum-FA-DHA (+DHA PO) Take 1 tablet by mouth once daily Active aspirin (Aspirin) 81 MG chew tablet Take 1 (one) tablet by mouth once daily Active Continuous Blood Gluc Sensor (Dexcom G7 Sensor) MISCIndication s:Type 2 diabetes mellitus affecting , antepartum (HCC) Use 1 Each as directed 3 Each 11 3 Active insulin glargine (Lantus SoloStar) pen Inject 60 (sixty) Units to 100 (one hundred) Units subcutaneously as directed Start with 30 units in morning, 30 units in evening. Space doses by 12 hrs. Increase as directed. Max daily dose 100 units. 30 mL 5 3 Active Additional Information Patient not taking.Reported on 09/08/2023 Insulin Pen Needle 32G X 4 MM MISCIndication s:Type 2 diabetes mellitus affecting , antepartum (HCC) Use 1 Each 5 times daily 100 Each 1 3 Active Additional Information Patient not taking.Reported on 11/03/2023 Glucagon (Baqsimi One Pack) 3 MG/DOSE POWD Priddy 3 mg into the nose as needed For emergency use only if unable to treat low blood sugar with food/drink. 1 Each 1 3 Active Glucagon, rDNA, (Glucagon Emergency) 1 MG KIT 1 (one) mg by Injection route as needed For emergency use only if unable to eat or drink to treat low blood sugar 1 Each 1 3 Active docusate sodium (Colace) 100 MG capsuleIndicat ions:Constipat ion Take 1 (one) capsule by mouth 2 times daily Reasons: Constipation 60 capsule 2 3 Active Additional Information Patient not taking.Reported on 09/22/2023 Insulin Disposable Pump (Omnipod 5 G6 Intro, Gen 5,) KITIndications :Diabetes mellitus affecting in second trimester ([facility]) Use 1 Each as directed 1 kit 3 Active Insulin Disposable Pump (Omnipod 5 G6 Pod, Gen 5,) MISCIndication s:Diabetes mellitus affecting in second trimester ([facility]) Use 1 package as directed Apply 1 pod every 2-3 days depending on insulin requirements which are expected to triple during 1 Each 5 3 Active insulin lispro (HumaLOG) 100 UNIT/ML vial Inject 100 (one hundred) Units to 150 (one hundred fifty) Units subcutaneously as directed For use in Omnipod insulin pump. 50 mL 3 3 Active Additional Information Patient not taking.Reported on 11/24/2023 ondansetron, disintegrating , (Zofran ODT) 4 MG tablet Take 1 (one) tablet by mouth every 6 hours as needed for Nausea/Vomiting Allow tablet to dissolve on the tongue Active riboflavin 400 MG capsuleIndicat ions:preventio n of headache Take 1 (one) capsule by mouth once daily Reasons: prevention of headache 100 capsule 6 3 Active Additional Information Patient not taking.Reported on 11/24/2023 magnesium oxide (Mag-Ox) 400 MG tabletIndicati ons:chronic headaches Take 1 (one) tablet by mouth once daily Reasons: chronic headaches 30 tablet 2 3 Active Additional Information Patient not taking.Reported on 11/24/2023 metoclopramide (Reglan) 10 MG tabletIndicati ons:Migraine,N ausea and Vomiting Take 1 (one) tablet by mouth 3 times daily before meals Reasons: Migraine Headache, Nausea and Vomiting 90 tablet 1 3 Active acetone,urine, (Ketostix) strip For testing if unable to tolerate food/fluids due to nausea/vomiting OR if blood glucose levels remain above 200 for 2-3 hrs unexplained by food / drink. 50 strip 1 3 Active Additional Information Patient not taking.Reported on 09/22/2023 NIFEdipine CR 24hr (Adalat CC) 60 MG tablet Take 1 (one) tablet by mouth once daily Take on an empty stomach. 30 tablet 2 4 Active insulin lispro 200 UNIT/ML Inject 50 (fifty) Units to 100 (one hundred) Units subcutaneously as directed for 30 days Use as directed in Omnipod insulin pump. 6 mL 1 4 Active insulin glargine (Lantus SoloStar) pen Inject 20 (twenty) Units to 50 (fifty) Units subcutaneously as directed Start with 10units in morning and 10 units in evening. Increase as directed. 15 mL 1 4 Active Insulin Pen Needle 32G X 4 MM MISCIndication s:Diabetes mellitus affecting in third trimester (HCC) Use 1 Each 2 times daily 100 Each 1 4 Active Active Problems Problem Noted Date Diagnosed Date Supervision of high risk in third trim jeimy 08/02/2023 Diabetes mellitus complicating 023 Overview (09/08/2023): Dx 2017 after delivery Hx GDM 06/15/2023 HbA1c 6.2% Baseline NPH bid started by primary ob at 8 weeks Has eye condition - IIH. Baseline BMI: 53.75 (65, 323 lbs) Started Dexcom at 17 weeks Omnipod pump, manual mode, started Aug 25. 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 Previous section complicating 08/02/2023 Obesity complicating in third trimeste r 08/02/2023 Keratosis pilaris rubra 12/16/2018 Chronic tension-type headache, not intractable 0 12/26/2015 Papilledema associated with increased intracrani al pressure 05/28/2015 Benign intracranial hypertension 05/28/2015 Overview (09/01/2023): MR venography of brain, history of pseudotumor cerebri, empty sella syndrome Impression: normal dural venous sinuses, imaging scanned into media, 08/2023 Family History Medical History Relation Name Comments Bipolar Disorder Brother 1 None Known Brother 2 Status: Alive Diabetes Maternal Aunt Seizures Mother Asthma Neg Hx CVA Neg Hx Cancer - Breast Neg Hx Cancer - Other Neg Hx Cancer - Skin, Melanoma Neg Hx Cancer - Skin, Non Melanoma Neg Hx Eczema Neg Hx Hemophilia Neg Hx Psoriasis Neg Hx Relation Name Status Comments Brother 1 Brother 2 Maternal Aunt Mother Social History Tobacco Use Types Packs/Day Years Used Date Smoking Tobacco: Never Smokeless Tobacco: Never Alcohol Use Standard Drinks/Week Comments Yes 0 (1 standard drink = 0.6 oz pur e alcohol) Comments No Sex and Gender Information Value Date Recorded Sex Assigned at Female 12/09/2021 7:07 PM CDT Legal Sex Female 5:33 PM TIMBER HARVESTER 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 Gender Identity Female 12/09/2021 7:07 PM CDT Sexual Orientation Something else 12/09/2021 7: 07 PM CDT Last Filed Vital Signs Vital Sign Reading Time Taken Comments Blood Pressure 138/72 12/14/2023 3:16 PM CDT Pulse 106 12/08/2023 1:12 PM CDT Temperature 36.6 C (97.9 F) 11/23/2023 3:34 PM CDT Respiratory Rate - - Oxygen Saturation 98% 11/30/2023 2:54 PM CDT Inhaled Oxygen Concentration - - Weight 156.2 kg (344 lb 6.4 oz) 12/08/2023 1:12 PM CDT Height 165.1 cm (5' 5) 08/25/2023 9:25 AM TIMBER HARVESTER OPERATOR Body Mass Index 57.31 08/25/2023 9:25 AM TIMBER HARVESTER OPERATOR Plan of Treatment Health Maintenance Due Date Last Done Comments HEPATITIS C SCREENING 11/28/2010 DTAP/TDAP/TD VACCINES (1 - Tdap) 12/03/2011 HEPATITIS B VACCINE (1 of 3 - 19+ 3-dose series) 12/03/2011 HPV VACCINE (1 - 3-dose SCDM series) 12/03/2019 DEPRESSION SCREENING 09/06/2024 COVID-19 VACCINE ( season) 2025 06/24/2021, 11/22/2020, 10/31/2020, Additional history exists INFLUENZA VACCINE (#1) 2025 , 06/24/2022, 09/12/2018, Additional history exists PAP SMEAR 05/19/2026 05/19/2023, 05/19/2023 ZOSTER VACCINE (1 of 2) 2042 HIV SCREENING Completed 06/15/2023 HIB VACCINE Aged Out No longer eligi ble based on patient's age to complete this topic MENINGOCOCCAL (Group B) VACCINE SHARED DECISION-MAKING Aged Out No longer eligible based on patient's age to complete this topic MENINGOCOCCAL GROUPS A/C/Y/W VACCINE Aged Out No longer eligible based on patient's age to complete this topic PNEUMOCOCCAL VACCINE Aged Out No long er eligible based on patient's age to complete this topic Insurance [facility] SELF PAY NO INSURANCE Member Subscriber Plan / Payer (Ef fective for All Dates) Name:Gracia Malin Jessie Member ID:Not on file Relation to Subscriber:Not on file Name:GRACIA MALIN Subscriber ID:Not on file Address: [address] [place] [address] Payer ID:Not on file Group ID:Not on file Type:Self Pay Address: [place], [place] [facility] SELF PAY NO INSURANCE Member Subscriber Plan / Payer (Ef fective for All Dates) Name:Gracia Malin Member ID:Not on file Relation to Subscriber:Not on file Name:GRACIA MALIN Subscriber ID:Not on file Address: [address] [facility] [place] [place] [address] Payer ID:Not on file Group ID:Not on file Type:Self Pay Address: [place], [place] [facility] SELF PAY NO INSURANCE Member Subscriber Plan / Payer (Ef fective for All Dates) Name:Gracia Malin Member ID:Not on file Relation to Subscriber:Not on file Name:GRACIA MALIN Subscriber ID:Not on file Address: [address] [facility] [place] [address] Payer ID:Not on file Group ID:Not on file Type:Self Pay Address: [place], [place] Care Teams Mercury Cell Cleaner Relationship Specialty Start Date End Date Chela Casillas MD PCP - General 08/18/19
--- OUTSIDE RECORDS SUMMARY | 2025-07-19 01:40 | XMS_ITS | Encounter Summary ---
Author Organization [facility] Care Team Providers Care Hospitalist Nocturnist Physician Name Role Phone No, Physician Primary Care Provider [phone] Munira Sanford MD Primary Care Pro vider Juve Beckham NP Primary Care Provider [phone] Encounter Details Date Type Department Care Team (Latest Contact Info) Description 06/11/2018 Orders Only [facility] CLINCONV ProviderFarrukh MD [address] [place] [id number] Social History Tobacco Use Types Packs/Day Years Used Date Smoking Tobacco: Never Smokeless Tobacco: Never Comments No Sex and Gender Information Value Date Recorded Sex Assigned at Not on file Legal Sex Female 10:41 AM MARKETING FORECASTER Gender Identity Female 11/11/2020 11:05 AM MARKETING FORECASTER Sexual Orientation Something else 11/11/2020 11 :05 AM MARKETING FORECASTER documented as of this encounter Functional Status documented as of this encounter Plan of Treatment Not on file documented as of this encounter Procedures Procedure Name Priority Date/Time Associated Diagnosis Comments SCAN - LABS 06/17/2018 12:00 AM CDT documented in this encounter Results * SCAN - LABS (06/17/2018 12:00 AM CDT) Narrative 06/17/2018 12:00 AM CDT Ordered by an unspecified provider. us Historical Provider Final Res ult documented in this encounter Visit Diagnoses Not on filedocumented in this encounter Additional Health Concerns Infection Onset Date Last Indicated Resolved Time COVID: Suspected 09/19/2021 09/19/2021 09/19/2021 10:10 PM MARKETING FORECASTER documented as of this encounter Care Teams Hospitalist Nocturnist Physician Relationship Specialty Start Date End Date No, Physician PCP - General 05/07/21 07/10/21 Munira Sanford MD PCP - General Family Medicine 07/11/21 02/04/25 Juve Beckham NP [address] [place] [id number] PCP - General Infectious Diseases 02/05/25 documented as of this encounter
--- OUTSIDE RECORDS SUMMARY | 2025-07-19 01:40 | XMS_ITS | Clinical Summary ---
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 8.5 g 6 9 Active cyclobenzaprine (FLEXERIL) 10 MG Tablet TK 1 T PO TID PRN. 0 9 Active Fluticasone-Nathaniel meterol 55-14 MCG/ACT AEROSOL POWDER, BREATH ACTIVATED INHALE 1 PUFF BY MOUTH TWICE DAILY 30 Each 11 9 Active Continuous Glucose Sensor (Dexcom G7 Sensor) Misc 1 Each by Does not apply route. 3 Active diclofenac (VOLTAREN) 50 MG Tablet Delayed Response TAKE 1 TABLET BY MOUTH UP TO TWICE DAILY NEEDED FOR PAIN Active Dulaglutide (Trulicity) 1.5 MG/0.5ML Solution Auto-injector by Subcutaneous route. Active FLUoxetine (PROzac) 10 MG Capsule Take 1 Capsule by mouth daily. Active fluticasone (FLOVENT HFA) 110 MCG/ACT Aerosol take 2 Puffs by inhalation. 2 Active Glucose Blood (Precision QID Test) Strip Testing twice a day 1 Active HYDROcodone-lacey taminophen (NORCO) 7.5-325 MG Tablet TAKE 1 TABLET BY MOUTH 4 TIMES DAILY NEEDED FOR SEVERE PAIN - TAKE SPARINGLY Active Insulin Disposable Pump (Omnipod 5 [id number] Intro Gen 5) Kit 1 Each by Does not apply route. 3 Active Insulin Pen Needle 32G X 4 MM Misc 1 Each by Does not apply route. 3 Active ketorolac (TORADOL) 10 MG Tablet TAKE 1 TABLET BY MOUTH 4 TIMES DAILY NEEDED FOR PAIN -DO NOT TAKE ANY OTHER NSAIDS WHILE TAKING THIS MEDICATION.- Active labetalol (NORMODYNE) 200 MG Tablet Take 1 Tablet by mouth 2 times daily. Active Lancets (OneTouch Delica Plus [id number]) [facility] [place] 1 NEW LANCET TO CHECK GLUCOSE ONCE DAILY IN THE MORNING 5 Active lidocaine (LIDODERM) 5 % Patch PLACE 1 PATCH ON THE SKIN DAILY REMOVE & DISCARD PATCH WITHIN 12 HOURS OR DIRECTED FOR 7 DAYS 4 Active lisinopril (PRINIVIL, ZESTRIL) 20 MG Tablet Take 20 mg by mouth daily. Active magnesium oxide (MAG-OX) 400 MG Tablet Take 400 mg by mouth. 3 Active metoclopramide (REGLAN) 10 MG Tablet Take 10 mg by mouth. 3 Active montelukast (SINGULAIR) 10 MG Tablet Take 10 mg by mouth daily. 5 Active nystatin (MYCOSTATIN) 516425 UNIT/GM Ointment APPLY TOPICALLY TO AFFECTED AREA 1 TO 2 TIMES DAILY - APPLY TO BACK OF THE LEGS AND GROIN UNTIL CLEAR THEN USE FOR FLARE UPS - Active prazosin (MINIPRESS) 1 MG Capsule take 1 capsule by mouth once daily at bedtime Active Riboflavin 400 MG Capsule Take 400 mg by mouth. 3 Active rosuvastatin (CRESTOR) 20 MG Tablet Take 20 mg by mouth daily. Active traMADol (ULTRAM) 50 MG Tablet Take 50 mg by mouth. 5 Active SITagliptin (Januvia) 100 MG Tablet Take 100 mg by mouth daily. Active acetaZOLAMIDE (DIAMOX) 500 MG CAPSULE SR 12 HR Take 1 Capsule by mouth 2 times daily. 60 Capsule 6 5 Active Active Problems Problem Noted Date Diagnosed Date Morbid obesity 04/27/2019 SISI (obstructive sleep apnea) 04/27/2019 Major depressive disorder, s benjamin episode, moderate with anxious distress 11/02/2018 Major depressive disorder, r ecurrent episode, moderate with anxious distress 11/02/2018 Prediabetes 10/19/2018 Asthma, mild intermittent 10/11/2018 Pseudotumor cerebri 10/11/2018 Overview (10/11/2018): Followed by [facility] at [facility] Gastroesophageal reflux disease 10/11/2018 Immunizations Immunization Administration Dates Next Due Influenza Vaccine greater than 3 yrs 09/12/2018 Influenza Vaccine, Quadrivalent, PF 06/24/2017 MMR Vaccine 09/06/2017 TDAP Vaccine 06/30/2017 Family History Medical History Relation Name Comments ADD / ADHD Brother Depression Brother No Known Problems Father Hypertension Maternal Grandfather Diabetes Maternal Grandmother Hypertension Maternal Grandmother Depression Mother Seizures Mother EPILEPSY Chronic Obstructive Pulmonary Disease Paternal Grandmo ther Relation Name Status Comments Brother Alive Father Alive DOESN'T HAVE IN FORMATION ON FATHERS HEALTH Maternal Grandfather Alive Maternal Grandmother Alive Mother Alive Other Alive Paternal Grandfather Alive Paternal Grandmother Social History Tobacco Use Types Packs/Day Years Used Date Smoking Tobacco: Never Smokeless Tobacco: Never Tobacco Cessation:Counseling Given: Not Answered Alcohol Use Standard Drinks/Week Comments Yes 0 (1 standard drink = 0.6 oz pure alcohol) socially, i.e. 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 file Not on file Not on file Last Filed Vital Signs Vital Sign Reading Time Taken Comments Blood Pressure 122/76 01/12/2025 11:20 AM CDT Pulse 80 08/07/2019 12:48 PM FOOD SERVICE TRAY ATTENDANT Temperature 36.2 C (97.2 F) 08/07/2019 12:48 PM FOOD SERVICE TRAY ATTENDANT Respiratory Rate 18 08/07/2019 12:48 PM FOOD SERVICE TRAY ATTENDANT Oxygen Saturation 98% 08/07/2019 12:48 PM FOOD SERVICE TRAY ATTENDANT Inhaled Oxygen Concentration - - Weight 153.3 kg (338 lb) 01/12/2025 11:20 AM CDT Height 170.2 cm (5' 7) 01/12/2025 11:20 AM CDT Body Mass Index 52.94 01/12/2025 11:20 AM CDT Plan of Treatment Upcoming Encounters Date Type Department Care Team (Late st Contact Info) Description 10/16/2025 12:30 PM FOOD SERVICE TRAY ATTENDANT Office Visit [facility] [place] [facility] [address] [place] [address] Christian Mejia MD [address] [place] [address] Discharge Disposition: Discharged to home or Selfcare Health Maintenance Due Date Last Done Comments Hepatitis B Immunization (1 of 3 - 19+ 3-dose series) 12/03/2011 Pneumococcal Immunization Combined (1 of 2 - PCV) 12/03/2011 Pap Smear 2013 Human Papillomavirus (HPV) Immunization (1 - 3-dose SCDM series) 12/03/2019 Cervical Cancer Screening (CCS) 2022 HPV/Cotest 2022 Influenza Immunization (#1) 2025 11/0 12/2022, 09/12/2018, 06/24/2017 SARS-COV-2 Immunization ( season) 2025 06/24/2021, 11/22/2020, 10/31/2020, Additional history exists Td Immunization Every 10 Years (Adults With 1 Tdap) 10/28/2033 10/28/2023, 06/30/2017 Respiratory Syncytial Virus (RSV) Immunization (Adult) (1 - 1-dose 75+ series) 12/03/2067 Hepatitis C Virus (HCV) Screening Completed 06/18/2021 Meningococcal Immunization (ACWY) Aged Out No longer eligible based on patient's age to complete this topic Rotavirus Immunization Aged Out No lo nger eligible based on patient's age to complete this topic Insurance MEDICAID [employer] Member Subscriber Plan / Payer (Ef fective 2025-Present) Name:Jil Kidd Relation to Subscriber:Self Name:Jil Kidd Payer ID:[id number] (NAIC) Group ID:NONE Type:Not on file Address: [address] [place] [id number] [place] [employer] MEDICAID [employer] [place] Care Teams Yarn Texture Machine Operator Relationship Specialty Start Date End Date Jamal Stokes MD [address] [place] [address] PCP - General Pediatrics 04/27/19 Christian Mejia MD [address] [place] [address] Consulting Physician Neurology 11/07/24
--- OUTSIDE RECORDS SUMMARY | 2025-07-19 01:40 | XMS_ITS | Patient Health Record ---
Author Organization [facility] Address [address] [facility] [address] [place] [address] Support Name Relationship Address Phone GRACIA MALIN Guarantor Unknown [phone] Reason For Referral No Information Medications Medication SIG (Take, Route, Frequency, Duration) Notes Start Date End Date Status Januvia 25 mg Tablet Oral Active DEXCOM G7 SENSOR DEVICE *Reorder from [employer] for eRx and Interaction Alerts* Active Lantus SoloStar 100 UNIT/ML Solution Pen-injector Subcutaneous Active Vitamin Plus Low Iron 27 mg iron- 1 mg Tablet Oral *Pick strength-form from [employer] for eRX* Active hydrOXYzine HCl 25 MG Tablet Oral Active Polyethylene Glycol 3350 Powder Oral Active lamoTRIgine 25 MG Tablet Oral Active Ondansetron 4 MG Tablet Disintegrating Oral Active metroNIDAZOLE 500 MG Tablet Oral Active OneTouch Delica Plus [id number] Miscellaneous Active cloNIDine HCl 0.1 MG Tablet Oral Active DEXCOM G6 EACH MISCELLANEOUS *Reorder from [employer] for eRx and Interaction Alerts* Active Lisinopril 20 MG Tablet Oral Active dexAMETHasone 4 MG Tablet Oral Active Nitrofurantoin Monohyd Macro 100 MG Capsule Oral Active Montelukast Sodium 10 MG Tablet Oral Active TRUEPLUS PEN NEEDLE 31 gauge x 3/16 NEEDLE, DISPOSABLE MISCELLANEOUS *Reorder from [employer] for eRx and Interaction Alerts* Active Lisinopril 10 MG Tablet Oral Active Glucagon Emergency 1 MG Kit Injection Active OneTouch Ultra Strip In Vitro Active Famotidine 20 MG Tablet Oral Active Dexcom G6 Coke Inspector A ctive ProAir HFA 108 (90 Base) MCG/ACT Aerosol Solution Inhalation Active Rosuvastatin Calcium 20 MG Tablet Oral Active SUMAtriptan Succinate 50 MG Tablet Oral Active Pantoprazole Sodium 40 MG Tablet Delayed Release Oral Active HumaLOG KwikPen 100 UNIT/ML Solution Pen-injector Subcutaneous Active TRUEplus Insulin Syringe 0.3 mL 31 gauge x 5/16 SYRINGE, EMPTY DISPOSABLE MISCELLANEOUS Active Ondansetron HCl 4 MG Tablet Oral Active Fluticasone Propionate Diskus 50 MCG/ACT Aerosol Powder Breath Activated Inhalation *Reorder from [employer] for eRx and Interaction Alerts* Active NIFEdipine ER Osmotic Release 30 MG Tablet Extended Release 24 Hour Oral Active Metoprolol Succinate ER 50 MG Tablet Extended Release 24 Hour Oral Active OneTouch Ultra 2 w/Device Kit Active Prazosin HCl 2 MG Capsule Oral Active FLUoxetine HCl 40 MG Capsule Oral Active HumuLIN N 100 UNIT/ML Suspension Subcutaneous Active Plan Of Treatment No Information
--- NOTE | 2025-07-19 01:57 | ED_ITS ---
HPI - Dizziness General Chief Complaint: Dizziness <Sofia Galan MD - Last Filed: 07/19/25 07:31> Stated Complaint: vertigo, back pain <Sofia Galan MD - Last Filed: 07/19/25 07:31> Time Seen by Provider: 07/19/25 01:30 <Sofia Galan MD - Last Filed: 07/19/25 07:31> Source: patient <Sofia Galan MD - Last Filed: 07/19/25 07:31> Mode of arrival: ambulatory <Sofia Galan MD - Last Filed: 07/19/25 07:31> Limitations: no limitations <Sofia Galan MD - Last Filed: 07/19/25 07:31> History of Present Illness HPI Narrative: Patient presents with report of vertigo.She states that at rest she has no issue however whenever she changes position for example stands up, she becomes dizzy. She denies any rotational/spinning component. Is hard for her to say if she is lightheaded. She feels off balance but does not know if her gait is altered however she states she felt like she could fall, unsteady. No falling sensation when at rest though and has not fallen. She has had a daily headache. Denies any episodes being precipitated by head changes. She reports a history of pseudotumor cerebri for which she is supposed to be on acetazolamide however she stopped taking it a few months ago because it gives her a metallic taste. She sees a neuro shipping & receiving lead in [place]. She has noticed that she has numbness at the tip of her tongue, primarily the left distal aspect. She denies any fevers or chills. She feels like she has a rapid heartbeat at times. She has chronic tinnitus. Denies any ear pain. She also notes that she chronic left hearing changes with possible acute worsening. Denies any nausea or vomiting. She reports she has a history of L5-S1 herniated disc. <Sofia Galan MD - Last Filed: 07/19/25 07:31> Related Data Home Medications: Home Medications ?Medication ?Instructions ?Recorded ?Confirmed ?Last Taken ?Type magnesium oxide 400 mg (241.3 mg 400 mg PO DAILY 08/2504/18/24 04/18/24 06:00 History magnesium) tablet albuterol sulfate 90 mcg/actuation 2 inh inhalation Q4 H PRN Shortness 04/17/24 04/18/24 04/17/24 History aerosol inhaler Of Breath Or Wheezing acetazolamide 500 mg 500 mg PO BID 06/19/2406/19 Unknown History capsule,extended release cyclobenzaprine 10 mg tablet 10 mg PO TID 06/19/24 Un known History duloxetine 20 mg capsule,delayed 20 mg PO BID 06/19/24 Unknown History release sitagliptin phosphate 25 mg tablet 25 mg PO DAILY 06/06 12/28 Unknown History (Januvia) <Sofia Galan MD - Last Filed: 07/19/25 07:31> Allergies/Adverse Reactions: Allergies Allergy/AdvReac Type Severity Reaction Status Date / Time No Known Allergies Allergy Verified 06/19/24 14:36 <Sofia Galan MD - Last Filed: 07/19/25 07:31> [facility] Past Medical History Medical History: Medical History Pseudotumor cerebri Morbid exogenous obesity PTSD (post-traumatic stress disorder) Bipolar disorder Borderline personality disorder Hyperlipidemia Hypertension Diabetes Asthma Viral syndrome Pharyngitis Bronchitis <Sofia Galan MD - Last Filed: 07/19/25 07:31> Surgical History Surgical History: Surgical History H/O section X1 <Sofia Galan MD - Last Filed: 07/19/25 07:31> Family History Family History: Family History Mother Seizure Grandparent Hypertension Diabetes mellitus Grandparent Chronic obstructive pulmonary disease <Sofia Galan MD - Last Filed: 07/19/25 07:31> Social History Social History: Social History Social History: She lives with her fiance, daughter and her fiancee's parents. She works for a [employer]. She just recently started there. She is a lifelong nonsmoker. She denies any alcohol marijuana or illicit drugs. Code status full code Smoking status: Never smoker Alcohol intake: never Substance use: former Substance use type: marijuana Other substance usage details: 3x per year for anxiety Last use: 2021 Do You Feel Safe in your Home?: Yes Lack of Transportation: No Lack of Food: Never True Current Housing: I Have Housing Concerned About Future Housing: No Difficulty Paying Gas/Electric Bills: No Difficulty Paying for Meds: No Currently Unemployed: No Education: High School Diploma/GED Difficulty w/ Childcare or Family Care: No Living arrangements: with family Occupation/Education: occupation Gender identity (if verbalized by the patient): Female Spiritual care concerns: No <Sofia Galan MD - Last Filed: 07/19/25 07:31> Exam 2 Narrative: GENERAL: Well-appearing, well-nourished, and in no acute distress. HEAD: Normocephalic, atraumatic. EYES: Non injected, non icteric. No horizontal or vertical nystagmus. ENT: Nares clear, no rhinorrhea or epistaxis. Gross auditory acuity intact. Bilateral tympanic membranes easily visualized without erythema bulging or effusion. No vesicles in external auditory canal or erythema in external auditory canal. NECK: Supple. No meningismus. CHEST: Speaking in full sentences. No respiratory distress. HEART: Regular rate and rhythm. . ABDOMEN: Morbidly obese but Soft, No rigidity or guarding. Not peritoneal EXTREMITIES: Normal range of motion. \ SKIN: Warm, dry, no rash. NEURO: No focal deficits. Alert and oriented. Answering questions. Following commands. Normal speech without aphasia or dysarthria. No ataxia on [id number]. PSYCH: Normal mood and affect. <Sofia Galan MD - Last Filed: 07/19/25 07:31> Course Course Emergency Course: Patient feeling improved with fluids / meclizine /Valium. Discharge home with scheduled meclizine for the next 2 days. Follow-up with PCP or neurologist as needed. Patient comfortable trend. <Antonio Morales MD - Last Filed: 07/19/25 08:57> Vital Signs Vital signs: Vital Signs Temperature 97.5 F L 07/18/25 21:58 Pulse Rate 99 11/12/25 21:58 Respiratory Rate 18 07/18/25 21:58 Blood Pressure 185/90 H 07/18/25 21:58 Pulse Oximetry 100 07/18/25 21:58 Temperature 97.5 F L 07/18/25 21:58 Pulse Rate 73 07/19/25 08:15 Respiratory Rate 18 07/19/25 08:15 Blood Pressure 111/97 H 07/19/25 08:15 Pulse Oximetry 99 07/19/25 08:15 Oxygen Delivery Room Air 07/19/25 00:02 <Sofia Galan MD - Last Filed: 07/19/25 07:31> Vital Signs Temperature 97.5 F L 07/18/25 21:58 Pulse Rate 99 07/18/25 21:58 Respiratory Rate 18 07/18/25 21:58 Blood Pressure 185/90 H 07/18/25 21:58 Pulse Oximetry 100 07/18/25 21:58 Temperature 97.5 F L 07/18/25 21:58 Pulse Rate 73 07/19/25 08:15 Respiratory Rate 18 07/19/25 08:15 Blood Pressure 111/97 H 07/19/25 08:15 Pulse Oximetry 99 07/19/25 08:15 Oxygen Delivery Room Air 07/19/25 00:02 <Antonio Morales MD - Last Filed: 07/19/25 08:57> MDM - Dizziness MDM Narrative Medical decision making narrative: Patient presents with report of dizziness. This happens when she changes position for example stands up. ALso has numbness of her tongue distally, on the left. History of pseudotumor cerebri for which she was supposed to be on acetazolamide her she discontinued by herself due to side effects. She sees a neuro shipping & receiving lead in [place]. In the emergency department she is afebrile vital signs notable for hypertension. Improvement of systolic but worsening diastolic repeat assessment. Symptoms are not distinctly vertiginous. However, considered the following DIFFERENTIAL DIAGNOSIS Central causes: infection ( encephalitis, meningitis, cerebritis); vertebrobasilar arterial insufficiency, subclavian steal syndrome, cerebellar or brainstem hemorrhage or infarction, vertebrobasilar migraine, trauma ( temporal bone fracture, post concussive syndrome); tumor (brainstem or cerebellum); MS; temporal lobe epilepsy Peripheral causes: Foreign body, cerumen impaction, acute otitis media, labyrinthitis, benign paroxysmal positional vertigo, Meniere's disease, vestibular neuronitis, perilymphatic fistula, trauma, motion sickness, acoustic neuroma, ototoxic medications Suspect orthostatic. Also possible pseudotumor cerebri. Meclizine given as first line agent. She is experiencing numbness of the tip of her tongue, L > R, which would be lingual nerve (CN V) versus chorda tympani (CN VII). Hyperglycemia without anion gap or acidosis. Pseudohyponatremia, corrects to 139/140. test negative. Orthostatic vital signs are reviewed and do show she becomes tachycardic with standing and her description of symptoms also correlates with this. 1 L IV fluids ordered. Patient reassessed at 4:10 a.m.. She has received about 500 cc of her fluids. We discussed the likely reason for her symptoms and that Reassessed by RN; she becomes symptomatic again while standing. Addl 500 CC fluids ordered. Still saying she is symptomatic when stands again. Will proceed with CTA imaging. Valium ordered as second line agent. Reassessed at 07:25. Upon standing she reports that her dizziness is somewhat better although she continues to have some tingling sensation. Promethazine ordered to suppress vestibular end-organ receptors and inhibit activation of vagal response. Will be signed out to oncoming ED pending medication administration and reassessment. <Sofia Galan MD - Last Filed: 07/19/25 07:31> Lab Data Attestation: I reviewed the patient's lab results. <Antonio Morales MD - Last Filed: 07/19/25 08:57> Result diagrams: 07/19/25 00:25 07/19/25 00:25 <Sofia Galan MD - Last Filed: 07/19/25 07:31> Labs: Lab Results 07/19/25 07/19/25 07/19/25 Range/Units 00:25 01:10 07:53 WBC 7.7 (4.5-10.0) K/mm3 RBC 5.19 (4.2-5.4) M/mm3 Hgb 12.5 (12.0-15.0) g/dL Hct 41.0 (37.0-47.0) % MCV 79.0 L (80-100) fl MCH 24.1 L (26-34) pg MCHC 30.5 L (32-36) g/dl RDW 14.6 H (11.5-14.5) % Plt Count 242 (150-375) k/mm3 MPV 10.3 (7.4-10.4) fl Immature Gran % (Auto) 0.4 (0-0.5) % Neut % (Auto) 61.4 (45.5-73.1) % Lymph % (Auto) 31.2 (18.3-44.2) % Buchanan % (Auto) 4.7 (2.6-8.5) % Eos % (Auto) 1.9 (0-4.4) % Baso % (Auto) 0.4 (0.2-1.2) % Lymph # (Auto) 2.41 (0.9-3.2) K/mm3 Buchanan # (Auto) 0.4 (0.1-0.6) K/mm3 Eos # (Auto) 0.2 (0-0.3) K/mm3 Baso # (Auto) 0.0 (0.0-0.1) K/mm3 Abs Immat Gran (auto) 0.03 (0.00-0.031) K/mm3 Absolute Neuts (auto) 4.7 (1.3-6.7) K/mm3 Absolute Nucleated RBC 0.000 (0.0-0.012) K/mm3 Nucleated RBC % 0.0 (0.0-0.2) % Sodium 135 L (137-145) mmol/L Potassium 3.8 (3.4-5.0) mmol/L Chloride 102 (98-107) mmol/L Carbon Dioxide 28 (22-30) mmol/L Anion Gap 5 (4-12) mmol/L BUN 10 (7-17) mg/dL Creatinine 0.58 L (0.7-1.0) mg/dL Estim Creat Clear Calc 176 ml/min Estimated GFR > 60 (59 - ) Glucose 326 H (65-110) mg/dL Calcium 9.0 (8.4-10.2) mg/dL Total Bilirubin 0.7 (0.2-1.3) mg/dL AST 27 (14-36) U/L ALT 29 (6-35) U/L Alkaline Phosphatase 105 (38-126) U/L Total Protein 7.5 (6.3-8.2) g/dL Albumin 3.7 (3.5-5.1) g/dL POC Urine HCG, Qual Negative (Negative) Urine Opiates Screen Negative (Negative) Urine Methadone Screen Negative (Negative) Ur Barbiturates Screen Negative (Negative) Ur Phencyclidine Scrn Negative (Negative) Ur Amphetamine Screen Negative (Negative) U Benzodiazepines Scrn Negative (Negative) Urine Cocaine Screen Negative (Negative) U Cannabinoids Screen Negative (Negative) <Sofia Galan MD - Last Filed: 07/19/25 07:31> Lab Results 07/19/25 07/19/25 07/19/25 Range/Units 00:25 01:10 07:53 WBC 7.7 (4.5-10.0) K/mm3 RBC 5.19 (4.2-5.4) M/mm3 Hgb 12.5 (12.0-15.0) g/dL Hct 41.0 (37.0-47.0) % MCV 79.0 L (80-100) fl MCH 24.1 L (26-34) pg MCHC 30.5 L (32-36) g/dl RDW 14.6 H (11.5-14.5) % Plt Count 242 (150-375) k/mm3 MPV 10.3 (7.4-10.4) fl Immature Gran % (Auto) 0.4 (0-0.5) % Neut % (Auto) 61.4 (45.5-73.1) % Lymph % (Auto) 31.2 (18.3-44.2) % Buchanan % (Auto) 4.7 (2.6-8.5) % Eos % (Auto) 1.9 (0-4.4) % Baso % (Auto) 0.4 (0.2-1.2) % Lymph # (Auto) 2.41 (0.9-3.2) K/mm3 Buchanan # (Auto) 0.4 (0.1-0.6) K/mm3 Eos # (Auto) 0.2 (0-0.3) K/mm3 Baso # (Auto) 0.0 (0.0-0.1) K/mm3 Abs Immat Gran (auto) 0.03 (0.00-0.031) K/mm3 Absolute Neuts (auto) 4.7 (1.3-6.7) K/mm3 Absolute Nucleated RBC 0.000 (0.0-0.012) K/mm3 Nucleated RBC % 0.0 (0.0-0.2) % Sodium 135 L (137-145) mmol/L Potassium 3.8 (3.4-5.0) mmol/L Chloride 102 (98-107) mmol/L Carbon Dioxide 28 (22-30) mmol/L Anion Gap 5 (4-12) mmol/L BUN 10 (7-17) mg/dL Creatinine 0.58 L (0.7-1.0) mg/dL Estim Creat Clear Calc 176 ml/min Estimated GFR > 60 (59 - ) Glucose 326 H (65-110) mg/dL Calcium 9.0 (8.4-10.2) mg/dL Total Bilirubin 0.7 (0.2-1.3) mg/dL AST 27 (14-36) U/L ALT 29 (6-35) U/L Alkaline Phosphatase 105 (38-126) U/L Total Protein 7.5 (6.3-8.2) g/dL Albumin 3.7 (3.5-5.1) g/dL POC Urine HCG, Qual Negative (Negative) Urine Opiates Screen Negative (Negative) Urine Methadone Screen Negative (Negative) Ur Barbiturates Screen Negative (Negative) Ur Phencyclidine Scrn Negative (Negative) Ur Amphetamine Screen Negative (Negative) U Benzodiazepines Scrn Negative (Negative) Urine Cocaine Screen Negative (Negative) U Cannabinoids Screen Negative (Negative) <Antonio Morales MD - Last Filed: 07/19/25 08:57> Imaging Data Attestation: I personally reviewed and interpreted this imaging study as follows: < Sofia Galan MD - Last Filed: 07/19/25 07:31> My impression: Borderline cardiomegaly but without evidence of pleural effusion as there is no loss of costophrenic angle <Sofia Galan MD - Last Filed: 07/19/25 07:31> Radiologist's impression: CT Head Stat Rad: No acute hemorrhage, hydrocephalus, or herniation. Impressions Chest X-Ray 11/13/25 06:28 IMPRESSION: 1. No acute cardiopulmonary findings. Head CT 07/19/25 06:42 IMPRESSION: 1. No acute intracranial findings. Head/Neck CTA 07/19/25 07:10 IMPRESSION: CTA NECK: 1. No acute findings. CTA HEAD: 1. No acute findings. <Sofia Galan MD - Last Filed: 07/19/25 07:31> Discharge Plan Discharge Clinical Impression: Hyperglycemia due to diabetes mellitus, Pseudohyponatremia, Paresthesia of tongue, Vertigo <Sofia Galan MD - Last Filed: 07/19/25 07:31> Patient Disposition: Home <Sofia Galan MD - Last Filed: 07/19/25 07:31> Condition: Stable <Sofia Galan MD - Last Filed: 07/19/25 07:31> Instructions: Antibiotic Form, Vertigo (ED) <Sofia Galan MD - Last Filed: 07/19/25 07:31> Additional Instructions: Return ER if you have fever over 100.4? F, you can not keep down food water, you lose consciousness, or you have additional concerns. <Sofia Galan MD - Last Filed: 07/19/25 07:31> Patient Language: Egyptian <Sofia Galan MD - Last Filed: 07/19/25 07:31> Prescriptions: New meclizine 25 mg tablet 25 mg PO TID PRN (Reason: dizziness) Qty: 14 0RF No Action duloxetine 20 mg capsule,delayed release(DR/EC) 20 mg PO BID cyclobenzaprine 10 mg tablet 10 mg PO TID Januvia 25 mg tablet 25 mg PO DAILY acetazolamide 500 mg capsule, extended release 500 mg PO BID albuterol sulfate 90 mcg/actuation HFA aerosol inhaler 2 inh INHALATION Q4H PRN (Reason: Shortness Of Breath Or Wheezing) magnesium oxide 400 mg (241.3 mg magnesium) tablet 400 mg PO DAILY acetazolamide 250 mg tablet 250 mg PO BID Qty: 60 3RF <Sofia Galan MD - Last Filed: 07/19/25 07:31> Follow-up/Referrals: Senait Snider [Other] - 1 Week <Sofia Galan MD - Last Filed: 07/19/25 07:31>
[2025-07-19] MEDS: MECLIZINE HCL 25 MG TABLET 50 MG PO (02:24)
--- NOTE | 2025-07-19 02:59 | PC.NURSE ---
Laying- pulse 97, bp 141/100 Sitting- pulse 89, bp 141/92 Standing- pulse 111, 144/98 was slightly dizzy upon standing.
[2025-07-19] MEDS: SODIUM CHLORIDE 0.9% IV 1,000 ML 999 ML IV CONT (03:30)
[2025-07-19] MEDS: SODIUM CHLORIDE 0.9% IV 500 ML 999 ML IV CONT ×2 (05:30→07:54)
[2025-07-19] MEDS: diazePAM INJ (*CRX) 10 MG/2 ML SYRINGE 5 MG IV PUSH (06:41)
[2025-07-19] MEDS: PROMETHAZINE HCL 25 MG/ML AMPUL 12.5 MG IV PUSH (07:54)
[2025-07-19 08:15] LABS: Cannabinoid Screen Urine Negative (Negative)
== END 2025-07-19 09:15 | disposition home or self-care (01) ==
PROVIDERS: Physician Assistant; Emergency Provider Student in an Organized Health Care Education/Training Program
DX: R42 Dizziness and giddiness (principal); E11.65 Type 2 diabetes mellitus with hyperglycemia; E78.5 Hyperlipidemia, unspecified; E66.09 Other obesity due to excess calories; Z68.43 Body mass index [BMI] 50.0-59.9, adult; I10 Essential (primary) hypertension; J45.909 Unspecified asthma, uncomplicated; G93.2 Benign intracranial hypertension; H93.19 Tinnitus, unspecified ear; M51.27 Other intervertebral disc displacement, lumbosacral region; F43.10 Post-traumatic stress disorder, unspecified; F31.9 Bipolar disorder, unspecified; T50.2X6A Underdosing of carbonic-anhydrase inhibitors, benzothiadiazides and other diuretics, initial encounter; Z91.128 Patient's intentional underdosing of medication regimen for other reason; Z79.899 Other long term (current) drug therapy; Z79.84 Long term (current) use of oral hypoglycemic drugs; R94.31 Abnormal electrocardiogram [ECG] [EKG]
CPT/HCPCS: 36415; 70450; 70496; 70498; 71046; 80053; 80307; 81025; 85025; 93005; 96361; 96374; 96375; 99284; A9270; J2550; J3360; J7030; J7040; Q9967